=== PATIENT | female | born 1950 | race Caucasian/White ===

== ENCOUNTER 2016-10-27 16:24 | Emergency (ER) | payer MEDICARE, OTHER ==
[~2016-10-27] VITALS: Ht 162.6 cm; Wt 79.4 kg
[~2016-10-27 16:24] MED LIST: ACET-1742 PO; ACET-461 PO; ASP81TEC PO; DICL75TA2 PO; HYDR-2890 PO; HYDR-3720 PO; LORA1TAB PO; MAGN-47 PO; MIRT15TA6 PO; MTP25TSR PO; NCT14P TD; NCT14P TOP; NICO1PAT5 TD; OXYC-12 PO; QUET50TA PO; TRAM50TA2 PO
[2016-10-27] MEDS ORDERED: ATOR40TA70 (16:40)
[2016-10-27] MEDS ORDERED: TRAM50TA2 (16:40)
--- NOTE | 2016-10-27 16:51 | ED General ---
General Chief Complaint: General Problems/Pain Stated Complaint: DIZZINESS/NAUSEA Nursing Triage Note: States that she started taking tamadol yesterday for a fx foot. States today she has become dizzy and nauseated. her head "just doesn't feel right" Nursing Sepsis Screen: No Definite Risk Source of Information: Patient, EMS Exam Limitations: No Limitations History of Present Illness Time Seen by Provider: 16:50 Initial Comments To ER with reports of dizziness and nausea after taking an Ultram this morning for a foot fracture that she sustained on the of last month. This report is from EMS, I spent nearly 10 minutes with the patient and was still unable to determine from my conversation with her what her chief complaint is today. Timing/Duration: 1-2 Days Severity: Moderate Allergies and Home Medications Allergies Coded Allergies: Penicillins (Unverified Allergy, Unknown, PASSED OUT, 10/27/16) Home Medications Acetaminophen 500 Mg Tablet, 500 MG PO Q6H PRN, (Reported) Aspirin 81 Mg Tabec, 81 MG PO DAILY, (Reported) Atorvastatin Calcium 40 Mg Tablet, #30 (Reported) Lorazepam 1 Mg Tablet, 1 EACH PO HS PRN, (Reported) Metoprolol Succinate 25 Mg Tab.sr.24h, 1 EACH PO DAILY, (Reported) Mirtazapine 15 Mg Tablet, 30 MG PO HS, (Reported) Quetiapine Fumarate 50 Mg Tablet, 50 MG PO TID, (Reported) ONE IN AM, ONE IN AFTERNOON AND TWO AT HS Tramadol HCl 50 Mg Tablet, #30 (Reported) Constitutional: see HPI EENTM: see HPI Respiratory: no symptoms reported Cardiovascular: no symptoms reported Gastrointestinal: nausea Genitourinary: no symptoms reported Musculoskeletal: no symptoms reported Skin: no symptoms reported Psychiatric/Neurological: No Symptoms Reported Hematologic/Lymphatic: No Symptoms Reported Past Elkzikw-Xhwikb-Hpvibg Hx Patient Social History Alcohol Use: Occasionally Uses Recreational Drug Use: No Smoking Status: Current Everyday Smoker Type Used: Cigarettes 2nd Hand Smoke Exposure: No Recent Foreign Travel: No Contact w/Someone Who Travel: No Recent Infectious Disease Expo: No Recent Hopitalizations: No (RIGHT HIP) Immunizations Up To Date Tetanus Booster (TDap): Less than 5yrs PED Vaccines UTD: Yes Surgeries HX Surgeries: Yes Surgeries: Breast, Orthopedic Respiratory Hx Respiratory Disorders: No Cardiovascular Hx Cardiac Disorders: Yes Cardiac Disorders: High Cholesterol, Hypertension Neurological Hx Neurological Disorders: No Reproductive System Hx Reproductive Disorders: No Sexually Transmitted Disease: No HIV/AIDS: No Genitourinary Hx Genitourinary Disorders: No Gastrointestinal Hx Gastrointestinal Disorders: No Musculoskeletal Hx Musculoskeletal Disorders: Yes (OSTEOARTHRITIS) Endocrine Hx Endocrine Disorders: No HEENT HX ENT Disorders: No Cancer Hx Cancer: No Psychosocial Hx Psychiatric Problems: Yes Behavioral Health Disorders: Anxiety Integumentary HX Skin/Integumentary Disorder: No Blood Transfusions Hx Blood Disorders: No Physical Exam Vital Signs Vital Sign - Last 12Hours 10/27/16 16:32 Temp 97.3 Pulse 71 Resp 18 B/P (MAP) 137/94 Pulse Ox 99 Capillary Refill : Less Than 3 Seconds General Appearance: No Apparent Distress, WD/WN Eyes: Bilateral Eye EOMI, Bilateral Eye Normal Inspection, Bilateral Eye PERRL HEENT: PERRL/EOMI, TMs Normal Neck: Full Range of Motion, Normal Inspection Respiratory: No Accessory Muscle Use, No Respiratory Distress Cardiovascular: Regular Rate, Rhythm, Normal Peripheral Pulses Gastrointestinal: Normal Bowel Sounds, Non Tender, Soft Extremity: Normal Capillary Refill, Non Tender, No Calf Tenderness Neurologic/Psychiatric: Alert, Oriented x3, No Motor/Sensory Deficits Skin: Normal Color, Warm/Dry Progress/Results/Core Measures Results/Orders Lab Results Laboratory Tests Test 10/27/16 17:05 10/27/16 17:11 Range/Units White Blood Count 8.3 4.3-11.0 10^3/uL Red Blood Count 5.23 4.35-5.85 10^6/uL Hemoglobin 15.2 11.5-16.0 G/DL Hematocrit 45 35-52 % Mean Corpuscular Volume 86 80-99 FL Mean Corpuscular Hemoglobin 29 25-34 PG Mean Corpuscular Hemoglobin Concent 34 32-36 G/DL Red Cell Distribution Width 14.6 H 10.0-14.5 % Platelet Count 211 130-400 10^3/uL Mean Platelet Volume 9.8 7.4-10.4 FL Neutrophils (%) (Auto) 83 H 42-75 % Lymphocytes (%) (Auto) 13 12-44 % Monocytes (%) (Auto) 3 0-12 % Eosinophils (%) (Auto) 0 0-10 % Basophils (%) (Auto) 0 0-10 % Neutrophils # (Auto) 6.9 1.8-7.8 X 10^3 Lymphocytes # (Auto) 1.1 1.0-4.0 X 10^3 Monocytes # (Auto) 0.3 0.0-1.0 X 10^3 Eosinophils # (Auto) 0.0 0.0-0.3 10^3/uL Basophils # (Auto) 0.0 0.0-0.1 10^3/uL Urine Color YELLOW Urine Clarity SLIGHTLY CLOUDY Urine pH 6 5-9 Urine Specific [place] 1.020 1.016-1.022 Urine Protein NEGATIVE NEGATIVE Urine Glucose (UA) NEGATIVE NEGATIVE Urine Ketones NEGATIVE NEGATIVE Urine Nitrite NEGATIVE NEGATIVE Urine Bilirubin NEGATIVE NEGATIVE Urine Urobilinogen NORMAL NORMAL MG/DL Urine Leukocyte Esterase 1+ H NEGATIVE Urine RBC (Auto) NEGATIVE NEGATIVE Urine RBC NONE /HPF Urine WBC NONE /HPF Urine Squamous Epithelial Cells 2-5 /HPF Urine Crystals NONE /LPF Urine Bacteria TRACE /HPF Urine Casts NONE /LPF Urine Mucus NEGATIVE /LPF Urine Culture Indicated NO My Orders Orders - EDWIN VIDAL BIB[employer]APHIC SERVICES SPECIALIST Cbc With Automated Diff (10/27/16 16:47) Comprehensive Metabolic Panel (10/27/16 16:47) Ua Culture If Indicated (10/27/16 16:47) Ondansetron Oral Dissolve Tab (Zofran (10/27/16 17:00) Foot, Left, 3 Views (10/27/16 17:02) Medications Given in ED Current Medications Medications Dose Ordered Sig/Rebecca Route Start Time Stop Time Status Last Admin Dose Admin Ondansetron HCl 4 mg ONCE ONCE PO 10/27/16 17:00 10/27/16 17:01 DC 10/27/16 16:57 4 MG Vital Signs/I&O Vital Sign - Last 12Hours 10/27/16 16:32 Temp 97.3 Pulse 71 Resp 18 B/P (MAP) 137/94 Pulse Ox 99 Blood Pressure Mean: 108 Departure Impression Impression: Primary Impression: Medication adverse effect Disposition: HOME, SELF-CARE Condition: Stable Departure-Patient Inst. Decision time for Depature: 17:36 Referrals: MARK FRANKLIN (PCP) Primary Care Physician RIKY WELLER MD (Family) Primary Care Physician Patient Instructions: MEDICATION REACTION Add. Discharge Instructions: 1. Return to ER for any concerns 2. Do not take any more of the Ultram. All discharge instructions reviewed with patient and/or family. Voiced understanding. EDWIN VIDAL B[employer] SERVICES SPECIALIST October 27, 2016 16:51
[2016-10-27] MEDS ORDERED: ONDANSETRON 4 MG (ZOFRAN) ORAL DISSOLVE TAB PO ONE (17:00)
[2016-10-27 17:16] LABS: BASOPHILS % (AUTO) 0 % (0-10); EOSINOPHILS % (AUTO) 0 % (0-10); LYMPHOCYTES # (AUTO) 1.1 X 10^3 (1.0-4.0); LYMPHOCYTES % (AUTO) 13 % (12-44); MEAN CORPUSCULAR HEMOGLOBIN 29 PG (25-34); MEAN CORPUSCULAR HGB CONC 34 G/DL (32-36); MEAN CORPUSCULAR VOLUME 86 FL (80-99); MEAN PLATELET VOLUME 9.8 FL (7.4-10.4); MONOCYTES # (AUTO) 0.3 X 10^3 (0.0-1.0); MONOCYTES % (AUTO) 3 % (0-12); NEUTROPHILS # (AUTO) 6.9 X 10^3 (1.8-7.8); NEUTROPHILS % (AUTO) 83 % (42-75); PLATELET COUNT 211 10^3/uL (130-400); RED BLOOD COUNT 5.23 10^6/uL (4.35-5.85); RED CELL DISTRIBUTION WIDTH 14.6 % (10.0-14.5); WHITE BLOOD COUNT 8.3 10^3/uL (4.3-11.0)
[2016-10-27 17:22] LABS: BILIRUBIN,URINE NEGATIVE (NEGATIVE); KETONES,URINE NEGATIVE (NEGATIVE); LEUKOCYTE ESTERASE ,URINE 1+ (NEGATIVE); NITRITE,URINE NEGATIVE (NEGATIVE); PH,URINE 6 (5-9); PROTEIN,URINE NEGATIVE (NEGATIVE); UROBILINOGEN,URINE NORMAL (NORMAL)
[2016-10-27 17:33] LABS: ALANINE AMINOTRANSFERASE 21 U/L (0-55); ALBUMIN 4.3 G/DL (3.2-4.5); ANION GAP 9 MMOL/L (5-14); ASPARTATE AMINO TRANSFERASE 23 U/L (5-34); BILIRUBIN,TOTAL 0.4 MG/DL (0.1-1.0); BLOOD UREA NITROGEN 19 MG/DL (7-18); BUN/CREATININE RATIO 26; CARBON DIOXIDE 27 MMOL/L (21-32); CHLORIDE 102 MMOL/L (98-107); CREATININE SERUM 0.73 MG/DL (0.60-1.30); GFR ESTIMATED > 60; GLUCOSE 118 MG/DL (70-105); POTASSIUM 4.2 MMOL/L (3.6-5.0); SODIUM 138 MMOL/L (135-145); TOTAL PROTEIN 7.3 G/DL (6.4-8.2)
--- NOTE | 2016-10-27 17:46 | Diagnostic Imaging Report ---
INDICATION: Pain. 3 views were obtained. FINDINGS: The bones are osteopenic. There is a questionable faint lucency in the proximal fifth metatarsal. Nondisplaced occult fracture cannot be excluded. There is also slight cortical irregularity involving the distal aspect of the proximal phalanx of the second toe. A nondisplaced fracture in this region cannot be excluded. There is moderate osteoarthritic change in the first metatarsophalangeal joint. Soft tissues are unremarkable. IMPRESSION: Faint lucency to the proximal fifth metatarsal. While this may be secondary to osteopenia, possibility of an occult fracture cannot be excluded. Additionally, there is slight cortical irregularity in the distal aspect of the proximal phalanx of the left second toe. Nondisplaced fracture in this region cannot be excluded. Recommend clinical correlation. Dictated by: Dictated on workstation # [id number]
[2016-10-27 18:00] VITALS: BP 139/71
== END 2016-10-27 18:00 | disposition home or self-care (01) ==
LOC: EDUNIT# 16:24 → ER 16:25
DX: R42 Dizziness and giddiness (principal); R11.0 Nausea; T40.0X5A Adverse effect of opium, initial encounter; I10 Essential (primary) hypertension; F17.210 Nicotine dependence, cigarettes, uncomplicated; Z79.82 Long term (current) use of aspirin; Z79.899 Other long term (current) drug therapy
CPT/HCPCS: 36415; 73630; 80053; 81000; 85025; 99283

== ENCOUNTER 2016-11-09 22:00 | Emergency (ER) | payer MEDICARE ==
[~2016-11-09] VITALS: Ht 160 cm; Wt 81.6 kg
[~2016-11-09 22:00] MED LIST changes: +ATOR40TA70; +TRAM50TA2
--- NOTE | 2016-11-09 22:22 | ED Lower Extremity ---
General Chief Complaint: Substance Abuse Stated Complaint: L FOOT PAIN Source: patient Exam Limitations: no limitations History of Present Illness Time seen by provider: 22:00 Initial Comments Here with report of left foot pain. States that the medicine that she was given for her fracture is not working. She admits to drinking 3 drinks tonight but told EMS that she had 6. She does admit to being drunk. She states that the tramadol makes her sick and she cannot take it and has not for 2 weeks. She apparently broke her foot last month. She is under the care of Dr. Jensen. She is supposed to wear a boot but does not have that with her currently. She appears to have been walking on her foot. Denies other injury or concerns. Onset: other (3-4 weeks) Severity: moderate Pain/Injury Location: left foot Method of Injury: unknown Modifying Factors: Improves With Immobilization, Worse With Movement Allergies and Home Medications Allergies Coded Allergies: Penicillins (Unverified Allergy, Unknown, PASSED OUT, 10/27/16) Home Medications Acetaminophen 500 Mg Tablet, 500 MG PO Q6H PRN, (Reported) Aspirin 81 Mg Tabec, 81 MG PO DAILY, (Reported) Atorvastatin Calcium 40 Mg Tablet, #30 (Reported) Lorazepam 1 Mg Tablet, 1 EACH PO HS PRN, (Reported) Metoprolol Succinate 25 Mg Tab.sr.24h, 1 EACH PO DAILY, (Reported) Mirtazapine 15 Mg Tablet, 30 MG PO HS, (Reported) Quetiapine Fumarate 50 Mg Tablet, 50 MG PO TID, (Reported) ONE IN AM, ONE IN AFTERNOON AND TWO AT HS Tramadol HCl 50 Mg Tablet, #30 (Reported) Constitutional: see HPI, No chills, No fever Respiratory: cough, No short of breath Cardiovascular: no symptoms reported Musculoskeletal: see HPI, No joint swelling, other (left foot pain) Skin: no symptoms reported Psychiatric/Neurological: Anxiety Past Ulpdlgs-Juwvip-Rlqthl Hx Patient Social History Alcohol Use: Occasionally Uses Recreational Drug Use: No Smoking Status: Current Everyday Smoker Type Used: Cigarettes 2nd Hand Smoke Exposure: No Recent Hopitalizations: No Immunizations Up To Date Tetanus Booster (TDap): Less than 5yrs PED Vaccines UTD: Yes Surgeries HX Surgeries: Yes Surgeries: Breast, Orthopedic Respiratory Hx Respiratory Disorders: No Cardiovascular Hx Cardiac Disorders: Yes Cardiac Disorders: High Cholesterol, Hypertension Neurological Hx Neurological Disorders: No Reproductive System Hx Reproductive Disorders: No Sexually Transmitted Disease: No HIV/AIDS: No Genitourinary Hx Genitourinary Disorders: No Gastrointestinal Hx Gastrointestinal Disorders: No Musculoskeletal Hx Musculoskeletal Disorders: Yes (OSTEOARTHRITIS) Endocrine Hx Endocrine Disorders: No HEENT HX ENT Disorders: No Cancer Hx Cancer: No Psychosocial Hx Psychiatric Problems: Yes Behavioral Health Disorders: Anxiety Integumentary HX Skin/Integumentary Disorder: No Blood Transfusions Hx Blood Disorders: No Reviewed Nursing Assessment Reviewed/Agree w Nursing PMH: Yes Physical Exam Vital Signs Vital Sign - Last 12Hours 11/09/16 22:01 Temp 97.1 Pulse 73 Resp 28 B/P (MAP) 124/74 Pulse Ox 100 O2 Delivery Room Air Capillary Refill : General Appearance: WD/WN, other (animated and somewhat anxious. Slurred speech.) Neck: full range of motion, supple Cardiovascular: regular rate, rhythm, no murmur Respiratory: lungs clear, normal breath sounds Gastrointestinal: non tender, soft Back: normal inspection, no CVA tenderness, no vertebral tenderness Feet: right foot non-tender, right foot normal inspection, right foot normal range of motion, left foot pain (lateral aspect), left foot other (no swelling or wounds noted.) Neurologic/Psychiatric: alert, other (slurred speech but follows commands. Smells of alcohol.) Skin: normal color, warm/dry Progress/Results/Core Measures Results/Orders Lab Results Laboratory Tests Test 11/09/16 22:20 Range/Units White Blood Count 6.8 4.3-11.0 10^3/uL Red Blood Count 5.17 4.35-5.85 10^6/uL Hemoglobin 14.8 11.5-16.0 G/DL Hematocrit 44 35-52 % Mean Corpuscular Volume 86 80-99 FL Mean Corpuscular Hemoglobin 29 25-34 PG Mean Corpuscular Hemoglobin Concent 33 32-36 G/DL Red Cell Distribution Width 14.8 H 10.0-14.5 % Platelet Count 233 130-400 10^3/uL Mean Platelet Volume 9.7 7.4-10.4 FL Neutrophils (%) (Auto) 50 42-75 % Lymphocytes (%) (Auto) 40 12-44 % Monocytes (%) (Auto) 6 0-12 % Eosinophils (%) (Auto) 3 0-10 % Basophils (%) (Auto) 0 0-10 % Neutrophils # (Auto) 3.4 1.8-7.8 X 10^3 Lymphocytes # (Auto) 2.7 1.0-4.0 X 10^3 Monocytes # (Auto) 0.4 0.0-1.0 X 10^3 Eosinophils # (Auto) 0.2 0.0-0.3 10^3/uL Basophils # (Auto) 0.0 0.0-0.1 10^3/uL Sodium Level 143 135-145 MMOL/L Potassium Level 3.4 L 3.6-5.0 MMOL/L Chloride Level 108 H 98-107 MMOL/L Carbon Dioxide Level 18 L 21-32 MMOL/L Anion Gap 17 H 5-14 MMOL/L Blood Urea Nitrogen 15 7-18 MG/DL Creatinine 0.67 0.60-1.30 MG/DL Estimat Glomerular Filtration Rate > 60 BUN/Creatinine Ratio 22 Glucose Level 114 H 70-105 MG/DL Calcium Level 9.3 8.5-10.1 MG/DL Total Bilirubin 0.2 0.1-1.0 MG/DL Aspartate Amino Transf (AST/SGOT) 21 5-34 U/L Alanine Aminotransferase (ALT/SGPT) 16 0-55 U/L Alkaline Phosphatase 88 40-136 U/L Total Protein 6.7 6.4-8.2 G/DL Albumin 4.1 3.2-4.5 G/DL Serum Alcohol 246 H <10 MG/DL My Orders Orders - CONRAD MEADE MD Alcohol (11/09/16 22:08) Cbc With Automated Diff (11/09/16 22:08) Comprehensive Metabolic Panel (11/09/16 22:08) Foot, Left, 3 Views (11/09/16 22:08) Vital Signs/I&O Vital Sign - Last 12Hours 11/09/16 22:01 Temp 97.1 Pulse 73 Resp 28 B/P (MAP) 124/74 Pulse Ox 100 O2 Delivery Room Air Progress Note : Progress Note Seen and evaluated. X-ray left foot. We will check alcohol level and basic labs. Monitor patient. 2139: Patient does not want to stay and is leaving AGAINST MEDICAL ADVICE. Discharge instructions given. She was informed to follow-up with Dr. Jensen. It does appear that she still has a fracture to the base of the left fifth metatarsal. Patient informed. She has boot at home and she was informed to wear this at all times while walking. Departure Impression Impression: Primary Impression: Foot fracture, left Qualified Codes: S92.902G - Unspecified fracture of left foot, subsequent encounter for fracture with delayed healing Disposition: Condition: Stable Departure-Patient Inst. Decision time for Depature: 22:44 Referrals: [facility] (PCP/Family) Primary Care Physician ROSE MARIE JENSEN DPM Patient Instructions: ALCOHOL AND SUBSTANCE ABUSE Add. Discharge Instructions: All discharge instructions reviewed with patient and/or family. Voiced understanding. You may take Tylenol or ibuprofen per package directions as needed for pain. Use walking boot at all times while walking. Follow-up with Dr. Jensen on Saturday morning. Call his office for appointment. Return for worse pain or other concerns as needed. CONRAD MEADE MD November 09, 2016 22:22
[2016-11-09 22:28] LABS: BASOPHILS % (AUTO) 0 % (0-10); EOSINOPHILS # (AUTO) 0.2 10^3/uL (0.0-0.3); EOSINOPHILS % (AUTO) 3 % (0-10); LYMPHOCYTES # (AUTO) 2.7 X 10^3 (1.0-4.0); LYMPHOCYTES % (AUTO) 40 % (12-44); MEAN CORPUSCULAR HEMOGLOBIN 29 PG (25-34); MEAN CORPUSCULAR HGB CONC 33 G/DL (32-36); MEAN CORPUSCULAR VOLUME 86 FL (80-99); MEAN PLATELET VOLUME 9.7 FL (7.4-10.4); MONOCYTES # (AUTO) 0.4 X 10^3 (0.0-1.0); MONOCYTES % (AUTO) 6 % (0-12); NEUTROPHILS # (AUTO) 3.4 X 10^3 (1.8-7.8); NEUTROPHILS % (AUTO) 50 % (42-75); PLATELET COUNT 233 10^3/uL (130-400); RED BLOOD COUNT 5.17 10^6/uL (4.35-5.85); RED CELL DISTRIBUTION WIDTH 14.8 % (10.0-14.5); WHITE BLOOD COUNT 6.8 10^3/uL (4.3-11.0)
[2016-11-09 22:44] LABS: ALANINE AMINOTRANSFERASE 16 U/L (0-55); ALBUMIN 4.1 G/DL (3.2-4.5); ALCOHOL 246 MG/DL (<10); ANION GAP 17 MMOL/L (5-14); ASPARTATE AMINO TRANSFERASE 21 U/L (5-34); BILIRUBIN,TOTAL 0.2 MG/DL (0.1-1.0); BLOOD UREA NITROGEN 15 MG/DL (7-18); BUN/CREATININE RATIO 22; CALCIUM 9.3 MG/DL (8.5-10.1); CARBON DIOXIDE 18 MMOL/L (21-32); CHLORIDE 108 MMOL/L (98-107); CREATININE SERUM 0.67 MG/DL (0.60-1.30); GFR ESTIMATED > 60; GLUCOSE 114 MG/DL (70-105); POTASSIUM 3.4 MMOL/L (3.6-5.0); SODIUM 143 MMOL/L (135-145); TOTAL PROTEIN 6.7 G/DL (6.4-8.2)
[2016-11-09 22:48] VITALS: BP 0/0
--- NOTE | 2016-11-10 07:56 | Diagnostic Imaging Report ---
INDICATION: Pain COMPARISON: 10/27/2016 FINDINGS: Three views of the left foot are obtained. There has been no significant interval change in alignment or position of the fracture through the proximal fifth metatarsal. Fracture line is slightly more distinct today, likely due to bony resorption at the fracture site. No significant callus is demonstrated. No new fracture is seen. Advanced degenerative change at the first MTP joint with significant joint space narrowing, subchondral irregularity and spurring appear similar to the recent prior study. No significant abnormalities demonstrated. IMPRESSION: There is bony resorption about the fracture site through the proximal fifth metatarsal. This metatarsal fractures otherwise unchanged in appearance. Severe degenerative changes at the first MTP joint are stable. No new abnormality is seen when compared to the recent prior study. Dictated by: Dictated on workstation # [id number]
== END 2016-11-09 22:48 | disposition left against medical advice (07) ==
LOC: EDUNIT# 22:00 → ER 22:02
DX: S92.352D Displaced fracture of fifth metatarsal bone, left foot, subsequent encounter for fracture with routine healing (principal); F10.129 Alcohol abuse with intoxication, unspecified; Y90.8 Blood alcohol level of 240 mg/100 ml or more; M19.072 Primary osteoarthritis, left ankle and foot; I10 Essential (primary) hypertension; F17.210 Nicotine dependence, cigarettes, uncomplicated; Z79.82 Long term (current) use of aspirin; Z79.899 Other long term (current) drug therapy; X58.XXXD Exposure to other specified factors, subsequent encounter; Y99.8 Other external cause status
CPT/HCPCS: 36415; 73630; 80053; 80320; 85025; 99283

== ENCOUNTER 2016-12-30 13:23 | Emergency (ER) | payer MEDICARE ==
[~2016-12-30] VITALS: Ht 160 cm; Wt 77.1 kg
[2016-12-30] MEDS ORDERED: NS IV 1000 ML 1,000 ML IV STA (14:07)
[2016-12-30] MEDS ORDERED: HYOSCYAMINE 0.125 MG (LEVSIN) TAB SL ONE (14:15)
--- NOTE | 2016-12-30 14:32 | ED Abdominal Pain ---
General Chief Complaint: Abdominal/GI Problems Stated Complaint: DIARRHEA/DIZZINESS/NAUSEA/BLOATING Nursing Triage Note: ARRIVED VIA AMB TO ROOM 09 WITHOUT DIFFICULTY. COMPLAINS OF DIARRHEA X2 DAYS. STATES SHE HAS BEEN SPRAYING ORTHO HOME DEFENSE FOR COCKROACHES AND WONDERS IF IT IS FROM THAT. PT STATES SHE IS ALSO BLOATED. Sepsis Screen: No Definite Risk Source of Information: Patient Exam Limitations: No Limitations History of Present Illness Time Seen By Provider: 14:00 Initial Comments Here with report of diarrhea multiple times daily for the last 3 days. She was a little concerned because she has been spreading for cockroaches at her house and she was worried that she may have had some reaction to the bug spray. She said Imodium has not helped. She is very active and animated and in no other distress otherwise. Denies blood in her urine or stool. States that water is going right through her. Timing/Duration: 2-3 Days Severity/Quality: Moderate, Cramping Location: Generalized Abdomen Modifying Factors: Worsens With Eating Associated Symptoms: No Back Pain, No Chest Pain, No Fever/Chills, No Fatigue, No Nausea/Vomiting, No Weakness Allergies and Home Medications Allergies Coded Allergies: Penicillins (Unverified Allergy, Unknown, PASSED OUT, 10/27/16) Home Medications Acetaminophen 500 Mg Tablet, 500 MG PO Q6H PRN, (Reported) Aspirin 81 Mg Tabec, 81 MG PO DAILY, (Reported) Atorvastatin Calcium 40 Mg Tablet, #30 (Reported) Lorazepam 1 Mg Tablet, 1 EACH PO HS PRN, (Reported) Metoprolol Succinate 25 Mg Tab.sr.24h, 1 EACH PO DAILY, (Reported) Mirtazapine 15 Mg Tablet, 30 MG PO HS, (Reported) Quetiapine Fumarate 50 Mg Tablet, 50 MG PO TID, (Reported) ONE IN AM, ONE IN AFTERNOON AND TWO AT HS Tramadol HCl 50 Mg Tablet, #30 (Reported) Review of Systems Constitutional: see HPI, No chills, No fever EENTM: No Symptoms Reported Respiratory: No Symptoms Reported Cardiovascular: No Symptoms Reported Gastrointestinal: See HPI, Abdominal Pain, Diarrhea, Denies Rectal Bleeding, Denies Vomiting Genitourinary: No Symptoms Reported Musculoskeletal: no symptoms reported All Other Systems Reviewed Negative Unless Noted: Yes Past Hefkwhr-Qacqcg-Arillb Hx Patient Social History Alcohol Use: Rarely Uses Recreational Drug Use: No Smoking Status: Current Everyday Smoker Type Used: Cigarettes 2nd Hand Smoke Exposure: No Recent Foreign Travel: No Contact w/Someone Who Travel: No Recent Infectious Disease Expo: No Recent Hopitalizations: No Immunizations Up To Date Tetanus Booster (TDap): Less than 5yrs PED Vaccines UTD: Yes Surgeries HX Surgeries: Yes Surgeries: Breast, Orthopedic Respiratory Hx Respiratory Disorders: No Cardiovascular Hx Cardiac Disorders: Yes Cardiac Disorders: High Cholesterol, Hypertension Neurological Hx Neurological Disorders: No Reproductive System Hx Reproductive Disorders: No Sexually Transmitted Disease: No HIV/AIDS: No Genitourinary Hx Genitourinary Disorders: No Gastrointestinal Hx Gastrointestinal Disorders: No Musculoskeletal Hx Musculoskeletal Disorders: Yes (OSTEOARTHRITIS) Endocrine Hx Endocrine Disorders: No HEENT HX ENT Disorders: No Cancer Hx Cancer: No Psychosocial Hx Psychiatric Problems: Yes Behavioral Health Disorders: Anxiety Integumentary HX Skin/Integumentary Disorder: No Blood Transfusions Hx Blood Disorders: No Reviewed Nursing Assessment Reviewed/Agree w Nursing PMH: Yes Family Medical History Significant Family History: No Pertinent Family Hx Physical Exam Vital Signs VS - Last 72 Hours, by Label 12/30/16 13:40 Temp 98.0 Pulse 74 Resp 16 B/P (MAP) 132/79 Pulse Ox 96 O2 Delivery Room Air Capillary Refill : Less Than 3 Seconds General Appearance: WD/WN, no apparent distress HEENT: PERRL/EOMI, pharynx normal Neck: full range of motion, supple Respiratory: lungs clear, normal breath sounds Cardiovascular: regular rate, rhythm, no murmur Peripheral Pulses: 2+ Dorsalis Pedis (R), 2+ Left Dors-Pedis (L), 2+ Radial Pulses (R), 2+ Radial Pulses (L) Gastrointestinal: non tender, soft Extremities: non-tender, normal inspection Back: normal inspection, no CVA tenderness, no vertebral tenderness Neurologic/Psychiatric: alert, oriented x 3 Skin: normal color, warm/dry Progress/Results/Core Measures Results/Orders Lab Results Laboratory Tests Test 12/30/16 14:20 12/30/16 15:16 Range/Units White Blood Count 11.1 H 4.3-11.0 10^3/uL Red Blood Count 5.52 4.35-5.85 10^6/uL Hemoglobin 15.6 11.5-16.0 G/DL Hematocrit 47 35-52 % Mean Corpuscular Volume 85 80-99 FL Mean Corpuscular Hemoglobin 28 25-34 PG Mean Corpuscular Hemoglobin Concent 33 32-36 G/DL Red Cell Distribution Width 15.6 H 10.0-14.5 % Platelet Count 234 130-400 10^3/uL Mean Platelet Volume 9.7 7.4-10.4 FL Neutrophils (%) (Auto) 89 H 42-75 % Lymphocytes (%) (Auto) 8 L 12-44 % Monocytes (%) (Auto) 2 0-12 % Eosinophils (%) (Auto) 0 0-10 % Basophils (%) (Auto) 0 0-10 % Neutrophils # (Auto) 9.9 H 1.8-7.8 X 10^3 Lymphocytes # (Auto) 0.9 L 1.0-4.0 X 10^3 Monocytes # (Auto) 0.2 0.0-1.0 X 10^3 Eosinophils # (Auto) 0.0 0.0-0.3 10^3/uL Basophils # (Auto) 0.0 0.0-0.1 10^3/uL Sodium Level 138 135-145 MMOL/L Potassium Level 4.1 3.6-5.0 MMOL/L Chloride Level 107 98-107 MMOL/L Carbon Dioxide Level 19 L 21-32 MMOL/L Anion Gap 12 5-14 MMOL/L Blood Urea Nitrogen 21 H 7-18 MG/DL Creatinine 0.76 0.60-1.30 MG/DL Estimat Glomerular Filtration Rate > 60 BUN/Creatinine Ratio 28 Glucose Level 108 H 70-105 MG/DL Calcium Level 9.3 8.5-10.1 MG/DL Total Bilirubin 0.4 0.1-1.0 MG/DL Aspartate Amino Transf (AST/SGOT) 27 5-34 U/L Alanine Aminotransferase (ALT/SGPT) 25 0-55 U/L Alkaline Phosphatase 79 40-136 U/L Total Protein 7.0 6.4-8.2 GM/DL Albumin 4.0 3.2-4.5 GM/DL Urine Color YELLOW Urine Clarity SLIGHTLY CLOUDY Urine pH 5 5-9 Urine Specific [place] 1.020 1.016-1.022 Urine Protein NEGATIVE NEGATIVE Urine Glucose (UA) NEGATIVE NEGATIVE Urine Ketones NEGATIVE NEGATIVE Urine Nitrite NEGATIVE NEGATIVE Urine Bilirubin NEGATIVE NEGATIVE Urine Urobilinogen NORMAL NORMAL MG/DL Urine Leukocyte Esterase 1+ H NEGATIVE Urine RBC (Auto) NEGATIVE NEGATIVE Urine RBC NONE /HPF Urine WBC 0-2 /HPF Urine Squamous Epithelial Cells 5-10 /HPF Urine Crystals NONE /LPF Urine Bacteria RARE /HPF Urine Casts NONE /LPF Urine Mucus NEGATIVE /LPF Urine Culture Indicated NO My Orders Orders - CONRAD MEADE MD Cbc With Automated Diff (12/30/16 14:07) Comprehensive Metabolic Panel (12/30/16 14:07) Ua Culture If Indicated (12/30/16 14:07) Ns Iv 1000 Ml (Sodium Chloride 0.9%) (12/30/16 14:07) Hyoscyamine Sl Tablet (Levsin Sl Tablet) (12/30/16 14:15) Saline Lock/Iv-Start (12/30/16 14:07) Manual Differential (12/30/16 14:20) Medications Given in ED Current Medications Medications Dose Ordered Sig/Rebecca Route Start Time Stop Time Status Last Admin Dose Admin Hyoscyamine Sulfate 0.125 mg ONCE ONCE SL 12/30/16 14:15 12/30/16 14:16 DC 12/30/16 14:18 0.125 MG Vital Signs/I&O Vital Sign - Last 12Hours 12/30/16 13:40 Temp 98.0 Pulse 74 Resp 16 B/P (MAP) 132/79 Pulse Ox 96 O2 Delivery Room Air Blood Pressure Mean: 96 Progress Note : Progress Note Seen and evaluated. IV, labs and UA. Normal saline 1 L bolus. Less than 0.125 mg by mouth. Monitor patient. 1550: Patient walking around the ER without difficulty. No report of diarrhea. Overall feeling much better. No acute findings on laboratory data. Discharged home with return precautions. Patient verbalize understanding instructions and agreement with plan. Departure Impression Impression: Primary Impression: Diarrhea Qualified Codes: R19.7 - Diarrhea, unspecified Additional Impression: Diffuse abdominal pain Disposition: 01 HOME, SELF-CARE Condition: Improved Departure-Patient Inst. Referrals: [facility] (PCP/Family) Primary Care Physician Patient Instructions: Acute Abdomen (Belly Pain), Adult (DC), Diarrhea in Adolescents and Adults Add. Discharge Instructions: All discharge instructions reviewed with patient and/or family. Voiced understanding. Drink plenty of fluids. Eat a light diet that is bland for a few days and then advance as tolerated. Follow-up with your Dr. in one to 2 days for recheck. Return for worse pain, fever, vomiting, weakness, breathing problems or other concerns as needed. Scripts Hyoscyamine Sulfate (Levsin-Sl) 0.125 Mg Tab.subl 0.125 MG SL Q4H, #10 TAB 0 Refills Prov: CONRAD MEADE MD 12/30/16 CONRAD MEADE MD Dec 30, 2016 14:32
[2016-12-30 15:12] LABS: BASOPHILS % (AUTO) 0 % (0-10); EOSINOPHILS % (AUTO) 0 % (0-10); LYMPHOCYTES # (AUTO) 0.9 X 10^3 (1.0-4.0); LYMPHOCYTES % (AUTO) 8 % (12-44); MEAN CORPUSCULAR HEMOGLOBIN 28 PG (25-34); MEAN CORPUSCULAR HGB CONC 33 G/DL (32-36); MEAN CORPUSCULAR VOLUME 85 FL (80-99); MEAN PLATELET VOLUME 9.7 FL (7.4-10.4); MONOCYTES # (AUTO) 0.2 X 10^3 (0.0-1.0); MONOCYTES % (AUTO) 2 % (0-12); NEUTROPHILS # (AUTO) 9.9 X 10^3 (1.8-7.8); NEUTROPHILS % (AUTO) 89 % (42-75); PLATELET COUNT 234 10^3/uL (130-400); RED BLOOD COUNT 5.52 10^6/uL (4.35-5.85); RED CELL DISTRIBUTION WIDTH 15.6 % (10.0-14.5); WHITE BLOOD COUNT 11.1 10^3/uL (4.3-11.0)
[2016-12-30 15:45] LABS: ALANINE AMINOTRANSFERASE 25 U/L (0-55); ANION GAP 12 MMOL/L (5-14); ASPARTATE AMINO TRANSFERASE 27 U/L (5-34); BILIRUBIN,TOTAL 0.4 MG/DL (0.1-1.0); BLOOD UREA NITROGEN 21 MG/DL (7-18); BUN/CREATININE RATIO 28; CALCIUM 9.3 MG/DL (8.5-10.1); CARBON DIOXIDE 19 MMOL/L (21-32); CHLORIDE 107 MMOL/L (98-107); CREATININE SERUM 0.76 MG/DL (0.60-1.30); GFR ESTIMATED > 60; GLUCOSE 108 MG/DL (70-105); POTASSIUM 4.1 MMOL/L (3.6-5.0); SODIUM 138 MMOL/L (135-145)
[2016-12-30 15:51] LABS: BILIRUBIN,URINE NEGATIVE (NEGATIVE); KETONES,URINE NEGATIVE (NEGATIVE); LEUKOCYTE ESTERASE ,URINE 1+ (NEGATIVE); NITRITE,URINE NEGATIVE (NEGATIVE); PH,URINE 5 (5-9); PROTEIN,URINE NEGATIVE (NEGATIVE); UROBILINOGEN,URINE NORMAL (NORMAL)
[2016-12-30 15:52] LABS: WBC,URINE 0-2 /HPF
[2016-12-30] MEDS ORDERED: HYOS0.1283 SL (16:04)
[2016-12-30 16:05] VITALS: BP 137/73
[2016-12-30 16:38] LABS: LYMPHOCYTES % (MANUAL) 6 %; NEUTROPHILS % (MANUAL) 91 %
--- OUTSIDE RECORDS SUMMARY | 2017-01-01 11:32 | XMS REPORT | Continuity of Care Document ---
Author Author [facility] Organization [facility] Address Unknown Phone Unavailable Allergies Active Description Code Type Severity Reaction Onset Reported/Identified Relationship to Patient Clinical Status Yes penicillamine Drug Allergy 11/27/2010 Yes penicillamine Drug Allergy N/A N/A 11/27/2010 Yes amlodipine 5 mg tablet Drug Allergy N/A N/A 07/01/2014 Yes Penicillins [id number] Drug Allergy Unknown PASSED OUT 10/27/2016 Medications Problems Date Dx Coded Attending Type Code Diagnosis Diagnosed By 11/27/2010 719.45 PAIN IN JOINT INVOLVING [place] AND THIGH 11/27/2010 MARK FRANKLIN APRN 719.45 PAIN IN JOINT INVOLVING [employer]IGH 11/27/2010 719.45 PAIN IN JOINT INVOLVING PELV[employer] AND THIGH 11/27/2010 MARK FRANKLIN APRN 719.45 PAIN IN JOINT INVOLVING PEL[employer]IC [employer] AND THIGH 11/27/2010 JES MODI DO 719.45 PAIN IN JOINT INVOLVING PELVIC [employer] AND THIGH 11/27/2010 MARK FRANKLIN APRN S 719.45 PAIN IN JOINT INVOLVING PELVIC [employer] AND THIGH 11/27/2010 MARK FRANKLIN APRN S 719.45 PAIN IN JOINT INVOLVING P[employer] AND THIGH 11/27/2010 MARK FRANKLIN APRN 719.45 PAIN IN JOINT INVOLVING P[employer] AND THIGH 11/27/2010 MARK FRANKLIN APRN S 719.45 PAIN IN JOINT INVOLVING PELVIC [employer] AND THIGH 02/01/2011 Ot 285.1 AC POSTHEMORRHAG ANEMIA 02/01/2011 Ot 305.1 TOBACCO USE DISORDER 02/01/2011 Ot 715.35 LOC OSTEOARTH NOS-PELVIS 04/05/2011 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 04/05/2011 MARK FRANKLIN APRN 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 04/05/2011 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 04/05/2011 RIGOBERTO BOAT FINISHER, MARK S 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 04/05/2011 JES OMDI DO K 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 04/05/2011 RIGOBERTO BO[employer] FINISHER, MARK S 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 04/05/2011 RIGOBERTO BOAT FINISHER, MARK S 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 04/05/2011 RIGOBERTO BOAT FINISHER, MARK S 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 04/05/2011 RIGOBERTO BOAT FINISHER, MARK S 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 05/03/2011 706.1 OTHER ACNE 05/03/2011 RIGOBERTO BO[employer] FINISHER, MARK S 706.1 OTHER ACNE 05/03/2011 706.1 OTHER ACNE 05/03/2011 RIOGBERTO BOAT FINISHER, MARK S 706.1 OTHER ACNE 05/03/2011 JES MODI DO K 706.1 OTHER ACNE 05/03/2011 RIGOBERTO BOAT FINISHER, MARK S 706.1 OTHER ACNE 05/03/2011 RIGOBERTO BOAT FINISHER, MARK S 706.1 OTHER ACNE 05/03/2011 RIGOBERTO BOAT FINISHER, MARK S 706.1 OTHER ACNE 05/03/2011 RIGOBERTO BOAT FINISHER, MARK S 706.1 OTHER ACNE 07/31/2011 300.00 anxiety 07/31/2011 RIGOBERTO [employer] FINISHER, MARK S 300.00 anxiety 07/31/2011 300.00 anxiety 07/31/2011 RIGOBERTO BO[employer] FINISHER, MARK S 300.00 anxiety 07/31/2011 JES MODI DO K 300.00 anxiety 07/31/2011 RIGOBERTO BOAT FINISHER, MARK S 300.00 anxiety 07/31/2011 RIGOBERTO BOAT FINISHER, MARK S 300.00 anxiety 07/31/2011 RIGOBERTO BOAT FINISHER, MARK S 300.00 anxiety 07/31/2011 RIGOBERTO BOAT FINISHER, MARK S 300.00 anxiety 11/16/2011 Ot 300.00 ANXIETY STATE NOS 11/16/2011 Ot 305.1 TOBACCO USE DISORDER 11/16/2011 Ot 427.69 PREMATURE BEATS NEC 11/16/2011 Ot 427.89 CARDIAC DYSRHYTHMIAS NEC 11/16/2011 Ot 715.35 LOC OSTEOARTH NOS-PELVIS 11/16/2011 Ot 790.29 OTHER ABNORMAL GLUCOSE 11/16/2011 Ot V17.49 FAMILY HISTORY OF OTHER CARDIOVASCULAR D 11/16/2011 Ot V43.64 HIP JOINT REPLACEMENT STATUS 11/28/2011 Ot 275.41 HYPOCALCEMIA 11/28/2011 Ot 285.9 ANEMIA NOS 11/28/2011 Ot 296.90 UNSPECIFIED EPISODIC MOOD DISORDER 11/28/2011 Ot 300.00 ANXIETY STATE NOS 11/28/2011 Ot 305.1 TOBACCO USE DISORDER 11/28/2011 Ot 715.36 LOC OSTEOARTH NOS-L/LEG 11/28/2011 Ot V43.64 HIP JOINT REPLACEMENT STATUS 11/28/2011 Ot V54.81 AFTERCARE FOLLOWING JOINT REPLACEMENT 11/28/2011 Ot V57.1 PHYSICAL THERAPY NEC 11/28/2011 Ot V57.21 ENCOUNTER FOR OCCUPATIONAL THERAPY 04/09/2012 796.2 ELEVATED BLOOD PRESSURE READING WITHOUT DIAGNOSIS OF HYPERTENSION 04/09/2012 JAMES FRANKLIN APRNA S 796.2 ELEVATED BLOOD PRESSURE READING WITHOUT DIAGNOSIS OF HYPERTENSION 04/09/2012 796.2 ELEVATED BLOOD PRESSURE READING WITHOUT DIAGNOSIS OF HYPERTENSION 04/09/2012 PARRISH FRANKLIN APRNNDA S 796.2 ELEVATED BLOOD PRESSURE READING WITHOUT DIAGNOSIS OF HYPERTENSION 04/09/2012 JES MODI DO K 796.2 ELEVATED BLOOD PRESSURE READING WITHOUT DIAGNOSIS OF HYPERTENSION 04/09/2012 PARRISH FRANKLIN APRNNDA S 796.2 ELEVATED BLOOD PRESSURE READING WITHOUT DIAGNOSIS OF HYPERTENSION 04/09/2012 PARRISH FRANKLIN APRNNDA S 796.2 ELEVATED BLOOD PRESSURE READING WITHOUT DIAGNOSIS OF HYPERTENSION 04/09/2012 PARRISH FRANKLIN APRNNDA S 796.2 ELEVATED BLOOD PRESSURE READING WITHOUT DIAGNOSIS OF HYPERTENSION 04/09/2012 PARRISH FRANKLIN APRNNDA S 796.2 ELEVATED BLOOD PRESSURE READING WITHOUT DIAGNOSIS OF HYPERTENSION 06/03/2012 PARRISH FRANKLIN APRNNDA S 272.4 HYPERLIPIDEMIA 06/03/2012 272.4 HYPERLIPIDEMIA 06/03/2012 PARRISH FRANKLIN APRNNDA S 272.4 HYPERLIPIDEMIA 06/03/2012 MODI LEEANNA HIGGINBOTHAMA K 272.4 HYPERLIPIDEMIA 06/03/2012 PARRISH FRANKLIN APRNNDA S 272.4 HYPERLIPIDEMIA 06/03/2012 MARK FRANKLIN APRN S 272.4 HYPERLIPIDEMIA 06/03/2012 JAMES FRANKLIN APRNA S 272.4 HYPERLIPIDEMIA 07/14/2012 Ot 785.1 PALPITATIONS 07/14/2012 Ot 786.09 RESPIRATORY ABNORM NEC 07/14/2012 Ot 786.50 CHEST PAIN NOS 03/04/2013 JAMES FRANKLIN APRNA S 719.47 PAIN- FOOT 03/04/2013 MODI JES HIGGINBOTHAM Derik 719.47 PAIN- FOOT 03/04/2013 JAMES FRANKLIN APRNA S 719.47 PAIN- FOOT 03/04/2013 JAMES FRANKLIN APRNA S 719.47 PAIN- FOOT 03/04/2013 JAMES FRANKLIN APRNA S 719.47 PAIN- FOOT 11/01/2013 TAMMY LU DO Derik Ot 300.00 ANXIETY STATE NOS 11/01/2013 TAMMY LU DO Derik Ot 786.01 HYPERVENTILATION 11/01/2013 TAMMY LU DO Derik Ot 786.05 SHORTNESS OF BREATH 11/19/2013 JAMES FRANKLIN APRNA S 300.4 DYSTHYMIC DISORDER 11/19/2013 JAMES FRANKLIN APRNA S 300.4 DYSTHYMIC DISORDER 11/19/2013 JAMES FRANKLIN APRNA S 300.4 DYSTHYMIC DISORDER 07/01/2014 JAMES FRANKLIN APRNA S 702.19 SEBORRHEIC KERATOSIS 07/01/2014 JAMES FRANKLIN APRNA S 719.46 PAIN- KNEE 07/01/2014 JAMES FRANKLIN APRNA S 783.1 WEIGHT GAIN ABNORMAL 07/01/2014 JAMES FRANKLIN APRNA S 702.19 SEBORRHEIC KERATOSIS 07/01/2014 JAMES FRANKLIN APRNA S 719.46 PAIN- KNEE 07/01/2014 JAMES FRANKLIN APRNA S 783.1 WEIGHT GAIN ABNORMAL 09/21/2014 MARK FRANKLIN APRN S 564.1 IRRITABLE BOWEL SYNDROME 08/11/2015 Ot 715.95 08/11/2015 Ot V72.63 08/11/2015 Ot V74.8 08/11/2015 Ot 785.1 08/11/2015 Ot 786.09 08/11/2015 Ot 786.50 08/11/2015 Ot 785.1 08/11/2015 Ot 786.09 08/11/2015 Ot 786.50 08/11/2015 KARYN GARCIA MD Ot 305.1 08/11/2015 KARYN GARCIA MD Ot 401.9 08/11/2015 KARYN GARCIA MD Ot 424.0 08/11/2015 KARYN GARCIA MD Ot 305.1 08/11/2015 KARYN GARCIA MD Ot 401.9 08/11/2015 KARYN GARCIA MD Ot 424.0 10/25/2015 Ot 715.95 OSTEOARTHROS NOS-PELVIS 10/25/2015 Ot V72.63 PRE-PROCEDURAL LABORATORY EXAMINATION 10/25/2015 Ot V74.8 SCREEN-BACTERIAL DIS NEC 10/25/2015 Ot 785.1 PALPITATIONS 10/25/2015 Ot 786.09 RESPIRATORY ABNORM NEC 10/25/2015 Ot 786.50 CHEST PAIN NOS 10/25/2015 Ot 785.1 PALPITATIONS 10/25/2015 Ot 786.09 RESPIRATORY ABNORM NEC 10/25/2015 Ot 786.50 CHEST PAIN NOS 10/25/2015 KARYN GARCIA MD Ot 305.1 TOBACCO USE DISORDER 10/25/2015 KARYN GARCIA MD Ot 401.9 HYPERTENSION NOS 10/25/2015 KARYN GARCIA MD Ot 424.0 MITRAL VALVE DISORDER 10/25/2015 KARYN GARCIA MD Ot 305.1 TOBACCO USE DISORDER 10/25/2015 KARYN GARCIA MD Ot 401.9 HYPERTENSION NOS 10/25/2015 KARYN GARCIA MD Ot 424.0 MITRAL VALVE DISORDER 11/03/2015 KARYN GARCIA MD Ot 305.1 TOBACCO USE DISORDER 11/03/2015 KARYN GARCIA MD Ot 401.9 HYPERTENSION NOS 11/03/2015 KARYN GARCIA MD Ot 424.0 MITRAL VALVE DISORDER 10/27/2016 Ot 785.1 PALPITATIONS 10/27/2016 Ot 786.09 RESPIRATORY ABNORM NEC 10/27/2016 Ot 786.50 CHEST PAIN NOS 10/27/2016 EDWIN VIDAL APRN Ot F17.210 NICOTINE DEPENDENCE, CIGARETTES, UNCOMPL 10/27/2016 EDWIN VIDAL BOAT FINISHER Ot I10 ESSENTIAL (PRIMARY) HYPERTENSION 10/27/2016 EDWIN VIDAL APRN Ot R11.0 NAUSEA 10/27/2016 EDWIN VIDAL APRN Ot R42 DIZZINESS AND GIDDINESS 10/27/2016 EDWIN VIDAL APRN Ot T40.0X5A ADVERSE EFFECT OF OPIUM, INITIAL ENCOUNT 10/27/2016 EDWIN VIDAL APRN Ot Z79.82 SPECIAL EFFECTS DESIGNER (CURRENT) USE OF ASPIRIN 10/27/2016 EDWIN VIDAL APRN Ot Z79.899 OTHER SNF (CURRENT) DRUG THERAPY 10/27/2016 Ot 715.95 OSTEOARTHROS NOS-PELVIS 10/27/2016 Ot V72.63 PRE-PROCEDURAL LABORATORY EXAMINATION 10/27/2016 Ot V74.8 SCREEN-BACTERIAL DIS NEC 10/27/2016 Ot 785.1 PALPITATIONS 10/27/2016 Ot 786.09 RESPIRATORY ABNORM NEC 10/27/2016 Ot 786.50 CHEST PAIN NOS 10/27/2016 Ot 785.1 PALPITATIONS 10/27/2016 Ot 786.09 RESPIRATORY ABNORM NEC 10/27/2016 Ot 786.50 CHEST PAIN NOS 10/27/2016 KARYN GARCIA MD Ot 305.1 TOBACCO USE DISORDER 10/27/2016 KARYN GARCIA MD Ot 401.9 HYPERTENSION NOS 10/27/2016 KARYN GARCIA MD Ot 424.0 MITRAL VALVE DISORDER 10/30/2016 EDWIN VIDAL APRN Ot F17.210 NICOTINE DEPENDENCE, CIGARETTES, UNCOMPL 10/30/2016 EDWIN VIDAL APRN Ot I10 ESSENTIAL (PRIMARY) HYPERTENSION 10/30/2016 EDWIN VIDAL APRN Ot R11.0 NAUSEA 10/30/2016 EDWIN VIDAL APRN Ot R42 DIZZINESS AND GIDDINESS 10/30/2016 EDWIN VIDAL APRN Ot T40.0X5A ADVERSE EFFECT OF OPIUM, INITIAL ENCOUNT 10/30/2016 EDWIN VIDAL APRN Ot Z79.82 SPECIAL EFFECTS DESIGNER (CURRENT) USE OF ASPIRIN 10/30/2016 EDWIN VIDLA APRN Ot Z79.899 OTHER SPECIAL EFFECTS DESIGNER (CURRENT) DRUG THERAPY 11/02/2016 EDWIN VIDAL APRN Ot F17.210 NICOTINE DEPENDENCE, CIGARETTES, UNCOMPL 11/02/2016 EDWIN VIDAL APRN Ot I10 ESSENTIAL (PRIMARY) HYPERTENSION 11/02/2016 EDWIN VIDAL APRN Ot R11.0 NAUSEA 11/02/2016 EDWIN VIDAL APRN Ot R42 DIZZINESS AND GIDDINESS 11/02/2016 EDWIN VIDAL APRN Ot T40.0X5A ADVERSE EFFECT OF OPIUM, INITIAL ENCOUNT 11/02/2016 EDWIN VIDAL APRN Ot Z79.82 SNF (CURRENT) USE OF ASPIRIN 11/02/2016 EDWIN VIDAL APRN Ot Z79.899 OTHER SNF (CURRENT) DRUG THERAPY 11/09/2016 CONRAD MEADE MD, Ot F10.129 ALCOHOL ABUSE WITH INTOXICATION, UNSPECI 11/09/2016 CONRAD MEADE MD, Ot F17.210 NICOTINE DEPENDENCE, CIGARETTES, UNCOMPL 11/09/2016 CONRAD MEADE MD, Ot I10 ESSENTIAL (PRIMARY) HYPERTENSION 11/09/2016 CONRAD MEADE MD, Ot M19.072 PRIMARY OSTEOARTHRITIS, LEFT ANKLE AND F 11/09/2016 CONRAD MEADE MD, Ot S92.352D DISP FX OF 5TH METATARSAL BONE, L FT , 7T 11/09/2016 CONRAD MEADE MD Ot X58.XXXD EXPOSURE TO OTHER SPECIFIED FACTORS , SUB 11/09/2016 CONRAD MEADE MD, Ot Y90.8 BLOOD ALCOHOL LEVEL OF 240 MG/100 ML OR 11/09/2016 CONRAD MEADE MD Ot Y99.8 OTHER EXTERNAL CAUSE STATUS 11/09/2016 CONRAD MEADE MD Ot Z79.82 SPECIAL EFFECTS DESIGNER (CURRENT) USE OF ASPIRIN 11/09/2016 CONRAD MEADE MD Ot Z79.899 OTHER SPECIAL EFFECTS DESIGNER (CURRENT) DRUG THERAPY 11/12/2016 CONRAD MEADE MD, Ot F10.129 ALCOHOL ABUSE WITH INTOXICATION, UNSPECI 11/12/2016 CONRAD MEADE MD, Ot F17.210 NICOTINE DEPENDENCE, CIGARETTES, UNCOMPL 11/12/2016 CONRAD MEAED MD Ot I10 ESSENTIAL (PRIMARY) HYPERTENSION 11/12/2016 CONRAD MEADE MD Ot M19.072 PRIMARY OSTEOARTHRITIS, LEFT ANKLE AND F 11/12/2016 CONRAD MEADE MD, Ot S92.352D DISP FX OF 5TH METATARSAL BONE, L FT , 7T 11/12/2016 CONRAD MEADE MD Ot X58.XXXD EXPOSURE TO OTHER SPECIFIED FACTORS , SUB 11/12/2016 CONRAD MEADE MD Ot Y90.8 BLOOD ALCOHOL LEVEL OF 240 MG/100 ML OR 11/12/2016 CONRAD MEADE MD Ot Y99.8 OTHER EXTERNAL CAUSE STATUS 11/12/2016 CONRAD MEADE MD Ot Z79.82 SNF (CURRENT) USE OF ASPIRIN 11/12/2016 CONRAD MEADE MD Ot Z79.899 OTHER SPECIAL EFFECTS DESIGNER (CURRENT) DRUG THERAPY Procedures Code Description Performed By Performed On 81.51 01/30/2011 81.51 TOTAL HIP REPLACEMENT 11/12/2011 81.92 INJECTION INTO JOINT 11/28/2011 99.23 INJECT STEROID 22019 HOLTER MONITOR 63834 ROUTINE VENIPUNCTURE 06/03/2012 34542 LIVER PANEL (LFT) 06/03/2012 11708 LIPID PANEL 06/03 25150 XRAY ANKLE L, 2 VIEW 03/06/2013 85195 XRAY FOOT LEFT COMP MIN 3 VIEWS 03/06/2013 74912 ROUTINE VENIPUNCTURE 08/12/2013 7409341 GFR CALC (RESULT ONLY) 08/12/2013 11061 CMP 08/12/2013 24255 LIPID PANEL 08/12 Cardiolog Karyn Garcia 11/20/2013 28826 XRAY KNEE LEFT 3 VIEWS 07/01/2014 Results Test Result Range Complete blood count (CBC) with automated white blood cell (WBC) differential - 10/27/16 17:05 Blood leukocytes automated count (number/volume) 8.3 10*3/ uL 4.3-11.0 Blood erythrocytes automated count (number/volume) 5.23 10*6 /uL 4.35-5.85 Venous blood hemoglobin measurement (mass/volume) 15.2 g/dL 11.5-16.0 Blood hematocrit (volume fraction) 45 % 35-52 Automated erythrocyte mean corpuscular volume 86 [foz_us] 80-99 Automated erythrocyte mean corpuscular hemoglobin (mass per erythrocyte) 29 pg 25-34 Automated erythrocyte mean corpuscular hemoglobin concentration measurement ( mass/volume) 34 g/dL 32-36 Automated erythrocyte distribution width ratio 14.6 % 10.0-14.5 Automated blood platelet count (count/volume) 211 10*3/uL 130-400 Automated blood platelet mean volume measurement 9.8 [foz_us ] 7.4-10.4 Automated blood neutrophils/100 leukocytes 83 % 42-75 Automated blood lymphocytes/100 leukocytes 13 % 12-44 Blood monocytes/100 leukocytes 3 % 0-12 Automated blood eosinophils/100 leukocytes 0 % 0-10 Automated blood basophils/100 leukocytes 0 % 0-10 Blood neutrophils automated count (number/volume) 6.9 10*3 1.8-7.8 Blood lymphocytes automated count (number/volume) 1.1 10*3 1.0-4.0 Blood monocytes automated count (number/volume) 0.3 10*3 0.0-1.0 Automated eosinophil count 0.0 10*3/uL 0.0-0.3 Automated blood basophil count (count/volume) 0.0 10*3/uL 0.0-0.1 Comprehensive metabolic panel - 10/27/16 17:05 Serum or plasma sodium measurement (moles/volume) 138 mmol/ L 135-145 Serum or plasma potassium measurement (moles/volume) 4.2 mmol/L 3.6-5.0 Serum or plasma chloride measurement (moles/volume) 102 mmol /L 98-107 Carbon dioxide 27 mmol/L 21-32 Serum or plasma anion gap determination (moles/volume) 9 mmol/L 5-14 Serum or plasma urea nitrogen measurement (mass/volume) 19 mg/dL 7-18 Serum or plasma creatinine measurement (mass/volume) 0.73 mg /dL 0.60-1.30 Serum or plasma urea nitrogen/creatinine mass ratio 26 NRG Serum or plasma creatinine measurement with calculation of estimated glomerular filtration rate > NRG Serum or plasma glucose measurement (mass/volume) 118 mg/dL 70-105 Serum or plasma calcium measurement (mass/volume) 10.0 mg/ dL 8.5-10.1 Serum or plasma total bilirubin measurement (mass/volume) 0.4 mg/dL 0.1-1.0 Serum or plasma alkaline phosphatase measurement (enzymatic activity/volume) 86 U/L 40-136 Serum or plasma aspartate aminotransferase measurement (enzymatic activity/ volume) 23 U/L 5-34 Serum or plasma alanine aminotransferase measurement (enzymatic activity/volume ) 21 U/L 0-55 Serum or plasma protein measurement (mass/volume) 7.3 g/dL 6.4-8.2 Serum or plasma albumin measurement (mass/volume) 4.3 g/dL 3.2-4.5 Complete urinalysis with reflex to culture - 10/27/16 17:11 Urine color determination YELLOW NRG Urine clarity determination SLIGHTLY CLOUDY NRG Urine pH measurement by test strip 6 5- 9 Specific gravity of urine by test strip 1.020 1.016-1.022 Urine protein assay by test strip, semi-quantitative NEGATIVE NEGATIVE Urine glucose detection by automated test strip NEGATIVE NEGATIVE Erythrocytes detection in urine sediment by light microscopy NEGATIVE NEGATIVE Urine ketones detection by automated test strip NEGATIVE NEGATIVE Urine nitrite detection by test strip NEGATIVE NEGATIVE Urine total bilirubin detection by test strip NEGATIVE NEGATIVE Urine urobilinogen measurement by automated test strip (mass/volume) NORMAL NORMAL Urine leukocyte esterase detection by dipstick 1+ NEGATIVE Automated urine sediment erythrocyte count by microscopy (number/high power field) NONE NRG Automated urine sediment leukocyte count by microscopy (number/high power field ) NONE NRG Bacteria detection in urine sediment by light microscopy TRACE NRG Squamous epithelial cells detection in urine sediment by light microscopy 2-5 NRG Crystals detection in urine sediment by light microscopy NONE NRG Casts detection in urine sediment by light microscopy NONE NRG Mucus detection in urine sediment by light microscopy NEGATIVE NRG Complete urinalysis with reflex to culture NO NRG Complete blood count (CBC) with automated white blood cell (WBC) differential - 11/09/16 22:20 Blood leukocytes automated count (number/volume) 6.8 10*3/ uL 4.3-11.0 Blood erythrocytes automated count (number/volume) 5.17 10*6 /uL 4.35-5.85 Venous blood hemoglobin measurement (mass/volume) 14.8 g/dL 11.5-16.0 Blood hematocrit (volume fraction) 44 % 35-52 Automated erythrocyte mean corpuscular volume 86 [foz_us] 80-99 Automated erythrocyte mean corpuscular hemoglobin (mass per erythrocyte) 29 pg 25-34 Automated erythrocyte mean corpuscular hemoglobin concentration measurement ( mass/volume) 33 g/dL 32-36 Automated erythrocyte distribution width ratio 14.8 % 10.0-14.5 Automated blood platelet count (count/volume) 233 10*3/uL 130-400 Automated blood platelet mean volume measurement 9.7 [foz_us ] 7.4-10.4 Automated blood neutrophils/100 leukocytes 50 % 42-75 Automated blood lymphocytes/100 leukocytes 40 % 12-44 Blood monocytes/100 leukocytes 6 % 0-12 Automated blood eosinophils/100 leukocytes 3 % 0-10 Automated blood basophils/100 leukocytes 0 % 0-10 Blood neutrophils automated count (number/volume) 3.4 10*3 1.8-7.8 Blood lymphocytes automated count (number/volume) 2.7 10*3 1.0-4.0 Blood monocytes automated count (number/volume) 0.4 10*3 0.0-1.0 Automated eosinophil count 0.2 10*3/uL 0.0-0.3 Automated blood basophil count (count/volume) 0.0 10*3/uL 0.0-0.1 Comprehensive metabolic panel - 11/09/16 22:20 Serum or plasma sodium measurement (moles/volume) 143 mmol/ L 135-145 Serum or plasma potassium measurement (moles/volume) 3.4 mmol/L 3.6-5.0 Serum or plasma chloride measurement (moles/volume) 108 mmol /L 98-107 Carbon dioxide 18 mmol/L 21-32 Serum or plasma anion gap determination (moles/volume) 17 mmol/L 5-14 Serum or plasma urea nitrogen measurement (mass/volume) 15 mg/dL 7-18 Serum or plasma creatinine measurement (mass/volume) 0.67 mg /dL 0.60-1.30 Serum or plasma urea nitrogen/creatinine mass ratio 22 NRG Serum or plasma creatinine measurement with calculation of estimated glomerular filtration rate > NRG Serum or plasma glucose measurement (mass/volume) 114 mg/dL 70-105 Serum or plasma calcium measurement (mass/volume) 9.3 mg/dL 8.5-10.1 Serum or plasma total bilirubin measurement (mass/volume) 0.2 mg/dL 0.1-1.0 Serum or plasma alkaline phosphatase measurement (enzymatic activity/volume) 88 U/L 40-136 Serum or plasma aspartate aminotransferase measurement (enzymatic activity/ volume) 21 U/L 5-34 Serum or plasma alanine aminotransferase measurement (enzymatic activity/volume ) 16 U/L 0-55 Serum or plasma protein measurement (mass/volume) 6.7 g/dL 6.4-8.2 Serum or plasma albumin measurement (mass/volume) 4.1 g/dL 3.2-4.5 Serum or plasma ethanol measurement (mass/volume) - 11/09/16 22:20 Serum or plasma ethanol measurement (mass/volume) 246 mg/dL <10 Encounters ACCT No. Visit Date/Time Discharge Status Pt. Type Provider Facility Loc./Unit Complaint [id number] 11/09/2016 22:02:00 2016 22:48:00 DIS Emergency DESHAUN REYNOSO, CONRAD Johns [facility] ER L FOOT PAIN [id number] 10/27/2016 16:25:00 2016 18:00:00 DIS Emergency EDWIN VIDAL BOAT FINISHER [facility] ER DIZZINESS/NAUSEA [id number] 11/01/2013 16:16:00 2013 19:50:00 DIS Emergency TAMMY LU DO [facility] ER SOA,WEAKNESS [id number] 09/24/2013 13:54:00 2013 23:59:59 CLS Outpatient NITHIN REYNOSO, KARYN Norris [facility] CARD HTN [id number] 07/15/2012 13:00:00 Document Registration [id number] 04/30/2012 10:47:00 Document Registration [id number] 04/15/2012 13:07:00 Document Registration [id number] 11/16/2011 13:40:00 Document Registration [id number] 11/12/2011 05:52:00 Document Registration [id number] 11/05/2011 10:15:00 Document Registration [id number] 01/29/2011 06:04:00 Document Registration
== END 2016-12-30 16:05 | disposition home or self-care (01) ==
LOC: EDUNIT# 13:23 → ER 13:24
DX: Z79.82 Long term (current) use of aspirin; I10 Essential (primary) hypertension; M19.90 Unspecified osteoarthritis, unspecified site; E78.00 Pure hypercholesterolemia, unspecified; F41.9 Anxiety disorder, unspecified; R10.84 Generalized abdominal pain; R19.7 Diarrhea, unspecified; F17.210 Nicotine dependence, cigarettes, uncomplicated
CPT/HCPCS: 36415; 80053; 81000; 85007; 85027; 96360

== ENCOUNTER → 2018-01-07 | Outpatient (CLI) | payer MEDICARE ==
[~2018-01-07] MED LIST changes: +HYOS0.1283 SL
== END ==
LOC: CARD 12:53
PROVIDERS: ATTEND Internal Medicine Cardiovascular Disease
DX: I10 Essential (primary) hypertension (principal); I49.3 Ventricular premature depolarization; R60.9 Edema, unspecified; F41.9 Anxiety disorder, unspecified
CPT/HCPCS: 93306

== ENCOUNTER → 2020-10-12 | Outpatient (CLI) | payer MEDICARE ==
[~2020-10-12] MED LIST changes: -TRAM50TA2; +TRM50T
--- NOTE | 2020-10-12 18:07 | Diagnostic Imaging Report ---
CT lung screening. INDICATION: 34 pack year smoking history for low-dose CT screening. TECHNIQUE: Noncontrast, low-dose CT imaging performed according to the lung cancer screening protocol. Auto Exposure Controls were utilize during the CT exam to meet ALARA standards for radiation dose reduction. COMPARISON: CT angiogram chest 11/01/2013. FINDINGS: No dominant lung mass or suspicious pulmonary nodule. There is no finding suggestive of CT evidence for lung cancer in this patient. There is no thoracic lymphadenopathy. No effusion or pneumothorax. The visualized upper abdomen shows low-density fat-containing bilateral adrenal adenomas or hyperplasia, stable from prior. No acute chest wall pathology. IMPRESSION:No mass or finding of lung cancer. No acute appearing abnormality. LUNG-RADS CATEGORY: Category 1 MODIFIER: None OTHER SIGNIFICANT FINDINGS:Chronic benign adrenal nodules. Dictated by: Dictated on workstation # [id number]
== END ==
LOC: RAD 14:57
PROVIDERS: ATTEND Internal Medicine
DX: Z12.2 Encounter for screening for malignant neoplasm of respiratory organs (principal); F17.210 Nicotine dependence, cigarettes, uncomplicated
CPT/HCPCS: 71271

== ENCOUNTER → 2022-04-04 | Outpatient (CLI) | payer MEDICARE ==
[~2022-04-04] VITALS: Ht 157 cm; Wt 86.0 kg
[~2022-04-04] MED LIST changes: +CATHETER FLUSH 10 ML SYR IVP PRN; +REGADENOSON 0.4 MG/5 ML SYR (LEXISCAN) IV ONE
[2022-04-04 13:52] VITALS: BP 116/77
--- NOTE | 2022-04-04 15:16 | Cardiology Stress Test Report ---
Stress Test Report Date of Procedure/Referring: Date of Procedure: Apr 04, 2022 PCP Isai Snell MD Admitting Physician Admitting Physician: Attending Physician: Riky Garcia MD Indications: CP Baseline Heart Rate: 75 Baseline Blood Pressure: Blood Pressure Systolic: 116 Blood Pressure Diastolic: 77 Baseline Vitals Vital Signs Date Time Temp Pulse Resp B/P (MAP) Pulse Ox O2 Delivery O2 Flow Rate FiO2 04/04/22 13:52 75 116/77 (90) 92 Baseline EKG: Baseline EKG: NSR Summary After explaining the procedure to the patient, she signed a consent and then brought to the stress nuclear laboratory. Patient received 0.4 mg Lexiscan for stress test, ECG, heart rate and blood pressure were monitored continuously. Resting and stress dose of radio tracer were injected, imaging was acquired and reviewed in short axis, horizontal long axis and vertical long axis views. TID: 1.08 SSS: 5 SDS: 1 EF: 84 1. Patient tolerated Lexiscan well 2. Breast attenuation with typical female pattern, no significant ischemia or infarction on SPECT images 3. Normal left ventricular size, ejection fraction 84% Copy Copies To 1: [facility] RIKY GARCIA MD Apr 04, 2022 15:16
== END ==
LOC: CARD 12:30
PROVIDERS: ATTEND Internal Medicine Cardiovascular Disease
DX: I25.10 Atherosclerotic heart disease of native coronary artery without angina pectoris (principal); I10 Essential (primary) hypertension
CPT/HCPCS: 78452; 93017; A9502

== ENCOUNTER → 2022-04-23 | Outpatient (CLI) | payer MEDICARE ==
[~2022-04-23] MED LIST changes: -CATHETER FLUSH 10 ML SYR IVP PRN; -REGADENOSON 0.4 MG/5 ML SYR (LEXISCAN) IV ONE
== END ==
LOC: CARD 14:20
PROVIDERS: ATTEND Internal Medicine Cardiovascular Disease
DX: I11.9 Hypertensive heart disease without heart failure (principal)
CPT/HCPCS: 93306

== ENCOUNTER → 2022-05-07 | Outpatient (CLI) | payer MEDICARE ==
--- NOTE | 2022-05-07 15:56 | Diagnostic Imaging Report ---
EXAM: CT left knee without contrast. DATE: May 07, 2022. INDICATION: 72-year-old female, left knee pain. Surgical planning. COMPARISON: None. TECHNIQUE: Axial CT images of the knee without contrast were obtained. Axial CT images at the level of the hip and ankle were also obtained for measurements of femoral version and tibial torsion and surgical planning. All CT scans use one or more of the following dose optimizing techniques: automated exposure control, MA and/or KvP adjustment based on patient size and exam type or iterative reconstruction. FINDINGS: There are limitations of the exam for diagnostic assessment given axial only imaging. This exam is primarily for surgical planning. There is a left total hip prosthesis with associated hardware related artifact. There is a sclerotic lesion in the left distal femur, most likely reflecting a bone infarct or enchondroma. There is moderate to severe patellofemoral compartment joint space loss with small osteophytes. The medial and lateral compartments are not well assessed on axial only imaging. There is a small to moderate sized knee joint effusion. There is a Burgess's cyst. IMPRESSION: 1. Advanced arthritis of the left knee. 2. Burgess's cyst. Dictated by: Dictated on workstation # [id number]
== END ==
LOC: RAD 13:47
PROVIDERS: ATTEND Orthopaedic Surgery
DX: M17.12 Unilateral primary osteoarthritis, left knee (principal); M71.22 Synovial cyst of popliteal space [Baker], left knee
CPT/HCPCS: 73200

== ENCOUNTER 2022-05-15 11:01 | Outpatient (CLI) | payer MEDICARE ==
[~2022-05-15] VITALS: Ht 154.9 cm; Wt 84.0 kg
[2022-05-15 14:13] LABS: BILIRUBIN,URINE NEGATIVE (NEGATIVE); CLARITY,URINE SL CLOUDY; COLOR,URINE YELLOW; GLUCOSE, URINE (UA) NEGATIVE (NEGATIVE); KETONES,URINE NEGATIVE (NEGATIVE); LEUKOCYTE ESTERASE ,URINE NEGATIVE (NEGATIVE); NITRITE,URINE POSITIVE (NEGATIVE); PROTEIN,URINE NEGATIVE (NEGATIVE)
[2022-05-15 14:21] LABS: BACTERIA,URINE LARGE /HPF; SQUAMOUS EPITHELIAL CELL,UR RARE /HPF
[2022-05-15] MEDS ORDERED: ATOR40TA70 PO (14:43)
[2022-05-15] MEDS ORDERED: HYDR25TA4 PO (14:43)
[2022-05-15] MEDS ORDERED: CETI10CA PO (14:43)
[2022-05-15] MEDS ORDERED: GUAI600T43 PO (14:43)
[2022-05-15] MEDS ORDERED: METO-351 PO (14:43)
[2022-05-15 14:45] LABS: INR 0.9 (0.8-1.4); PROTHROMBIN TIME PATIENT 12.9 SEC (12.2-14.7)
[2022-05-15 14:46] LABS: BASOPHILS % (AUTO) 1 % (0-10); EOSINOPHILS # (AUTO) 0.2 10^3/uL (0.0-0.3); EOSINOPHILS % (AUTO) 2 % (0-10); HEMATOCRIT 48 % (35-52); HEMOGLOBIN 16.1 g/dL (11.5-16.0); LYMPHOCYTES # (AUTO) 2.1 10^3/uL (1.0-4.0); LYMPHOCYTES % (AUTO) 30 % (12-44); MEAN CORPUSCULAR HEMOGLOBIN 29 pg (25-34); MEAN CORPUSCULAR HGB CONC 33 g/dL (32-36); MEAN CORPUSCULAR VOLUME 86 fL (80-99); MEAN PLATELET VOLUME 9.6 fL (9.0-12.2); MONOCYTES # (AUTO) 0.4 10^3/uL (0.0-1.0); MONOCYTES % (AUTO) 7 % (0-12); NEUTROPHILS # (AUTO) 4.1 10^3/uL (1.8-7.8); NEUTROPHILS % (AUTO) 60 % (42-75); PLATELET COUNT 214 10^3/uL (130-400); WHITE BLOOD COUNT 6.8 10^3/uL (4.3-11.0)
--- NOTE | 2022-05-15 14:52 | Physical Therapy Pre-Op Eval ---
PT Pre-Surgical Assessment Type of Surgery Type of Surgery: left TKR Prior Level of Function Current Living Status: Alone Locomotion (Upon Admit): Front Wheeled Walker PLOF DME: Front Wheeled Walker Subjective Home: Apartment Current Living Status: Alone Entry Into Home: Level Entry Motor Control Motor Control: Motor Control WNL ROM ROM: WFL, except focal deficit Strength Strength: WFL Transfers Transfers (B, C, W/C) (FIM): 6 Gait Gait (FIM): 6 Gait Distance (FIM): 6 Distance: 150' Gait Assistive Device: FWW Treatment Rendered Treatment: Patient instructed in assistive device, supported ambulation. Patient instructed in and given written program of ROM and strengthening exercises to be preformed post-op. Patient instructed in movement precautions where applicable. Patient demonstrates understandings of post-operative therapy protocol including gait pattern and exercise program. Pre-operative instruction completed; await physical therapy orders after surgery. Treatment Goal Met: Yes Assessment Goals Acheived: I Ambulation w/ FWW, Understands P-op Precaut, I Post-op Exercises Charges/GCodes Time In: 1355 Time Out: 1405 Total Billed Treatment Time: 10 Total Billed Treatment 1 Educ FARTUN COREA PT May 15, 2022 14:52
[2022-05-15 14:53] LABS: ALBUMIN 4.1 GM/DL (3.2-4.5); BILIRUBIN,TOTAL 0.7 MG/DL (0.1-1.0); CALCIUM 9.6 MG/DL (8.5-10.1); CREATININE SERUM 0.65 MG/DL (0.60-1.30); POTASSIUM 4.1 MMOL/L (3.6-5.0); TOTAL PROTEIN 7.5 GM/DL (6.4-8.2)
[2022-05-15 14:54] LABS: ERYTHROCYTE SEDIMENTATION RATE 4 MM/HR (0-30)
[2022-05-15 15:44] VITALS: BP 132/66
--- NOTE | 2022-05-15 16:43 | Diagnostic Imaging Report ---
EXAMINATION: Chest, two views. HISTORY: Preoperative evaluation. COMPARISON: None available. FINDINGS: Heart size and pulmonary vasculature are normal. The lungs are clear without consolidation, pleural effusion, or pneumothorax. The osseous structures are intact. IMPRESSION: 1. No acute radiographic abnormality in the chest. Dictated by: Dictated on workstation # [id number]
== END 2022-05-15 16:02 ==
LOC: PREOP 11:01
PROVIDERS: ATTEND Orthopaedic Surgery
DX: Z01.818 Encounter for other preprocedural examination (principal); M17.12 Unilateral primary osteoarthritis, left knee
CPT/HCPCS: 36415; 71046; 80053; 81000; 82308; 85025; 85610; 85652; 86850; 86900; 86901; 87077; 87081; 87088; 93005

== ENCOUNTER 2022-05-23 06:00 | Inpatient (IN) | payer MEDICARE ==
--- NOTE | 2022-05-14 07:25 | HISTORY AND PHYSICAL ---
DATE OF SERVICE: 05/23/2022 ADMISSION HISTORY AND PHYSICAL DATE OF ADMISSION: 05/23/2022. This will be for inpatient admission on 05/23/2022 for left total knee arthroplasty. The patient will require regular inpatient admission due to comorbidities and need for physical therapy, need for pain management. HISTORY OF PRESENT ILLNESS: The patient is a 72-year-old female with longstanding left knee pain. She also has a history of lumbar radiculopathy. She has had bilateral hip replacements. She underwent an epidural injection, which did help with her back pain and radicular symptoms, but she continues to have left knee pain. She describes pain laterally. She describes it as sharp at times, but other times. She has undergone treatment with steroid injection as well as Synvisc with only temporary relief of her symptoms due to functional impairment and failure to improve with conservative measures, the patient elected to proceed with surgical intervention. REVIEW OF SYSTEMS: No chest pain, no shortness of breath, and no dysuria. PAST MEDICAL HISTORY: Inflammatory arthritis. PAST SURGICAL HISTORY: Breast reduction, bilateral total hip arthroplasties, tonsillectomy and ankle. FAMILY HISTORY: Significant for diabetes, ischemic heart disease. Primary care provider is Dr. Snell. MEDICATIONS: Aspirin, hydrochlorothiazide, cyclobenzaprine, Naprosyn. ALLERGIES: PENICILLIN, AMLODIPINE, TRAMADOL. SOCIAL HISTORY: The patient smokes a quarter pack of cigarettes a day. Reports social alcohol use. Radiographs reveal valgus alignment. She has marked lateral joint space narrowing and complete loss of patellofemoral joint space. PHYSICAL EXAMINATION: GENERAL: The patient is well-developed, well-nourished, in no acute distress. HEENT: Normocephalic, atraumatic. Pupils equal, round, react to light. Oropharynx is clear. NECK: Supple. No lymphadenopathy. LUNGS: Clear to auscultation bilaterally. HEART: Regular rate and rhythm. ABDOMEN: Soft, nontender, nondistended. EXTREMITIES: The left knee demonstrates valgus alignment. She is markedly tender along the medial joint line. She has pain medially with Keisha's. There is no varus or valgus laxity. Negative anterior and posterior drawer. Range of motion 0/2/120. Negative straight leg raise. No pain with hip range of motion. IMPRESSION: Severe left knee osteoarthritis. PLAN: Left total knee arthroplasty. The risks, benefits, options, indications of recovery have been discussed at length with the patient. She understands and wishes to proceed. Job ID: [id number] DocumentID: [id number] Dictated Date: 05/07/2022 11:02:38 Hogshead Hooper Date: 05/07/2022 11:31:00 Dictated By: JACKELYN SALEH MD
[2022-05-23] VITALS (12 sets, daily range): BP systolic 107–132; BP diastolic 51–97
[~2022-05-23] VITALS: Ht 155 cm; Wt 84.0 kg
[~2022-05-23 06:00] MED LIST changes: +ATOR40TA70 PO; +CETI10CA PO; +GUAI600T43 PO; +HYDR25TA4 PO; +METO-351 PO
--- OUTSIDE RECORDS SUMMARY | 2022-05-23 06:03 | XMS REPORT | Clinical Summary ---
Author Author [facility] Organization [facility] Address Unknown Phone Unavailable Care Team Providers Care Operations [place] Name Role Phone No Pcp, Na PCP Unavailable Source Comments Some departments are not documenting in the electronic medical record. If you d o not see the information that you expected, contact Release of Information in [facility] [employer] Information Management department at [phone] for further assistan ce in locating additional records.[facility] Allergies Comments Active Allergy Reactions Severity Noted Date Penicillins SYNCOPE High 03/24/2015 Medications End Date Status Medication Sig Dispensed Refills Start Date Active gabapentin (NEURONTIN) Take 300 mg 0 02 300 mg capsule by mouth. 1 Active hydroCHLOROthiazide daily. 0 (HYDRODIURIL) 25 mg 4 tablet Active naproxen (NAPROSYN) 500 twice daily. 0 mg tablet 1 Active metoprolol XL (TOPROL XL) daily. 0 05/24 25 mg extended release 3 tablet Active aspirin EC 81 mg tablet aspirin 81 mg 0 tablet,delaye 4 d release daily Active cetirizine HCl (ZYRTEC Take by 0 PO) mouth. Active Problems Not on file Surgical History Surgery Date Site/Laterality Comments BREAST REDUCTION HIP SURGERY Bilateral TONSILLECTOMY Medical History Medical History Date Comments Scoliosis Family History Medical History Relation Name Comments Diabetes Father Heart problem Father Back pain Mother Heart problem Mother Osteoporosis Mother Scoliosis Mother Relation Name Status Comments Father Mother Social History Date Tobacco Use Types Packs/Day Years Used Smoking Tobacco: Every Day Smokeless Tobacco: Never Comments Alcohol Use Standard Drinks/Week Yes 0 (1 standard drink = 0.6 o z pure alcohol) Sex Assigned at Date Recorded Not on file Obstetrics History Last Filed Vital Signs Reading Time Taken Comments Vital Sign 140/113 01/31/2021 1:18 PM CDT Blood Pressure 73 01/31/2021 12:00 PM CDT Pulse 36.4 C (97.5 F) 01/31/2021 12:00 PM CDT Temperature - - Respiratory Rate 98% 01/31/2021 1:18 PM CDT Oxygen Saturation - - Inhaled Oxygen Concentration 80.7 kg (178 lb) 01/31/2021 12:00 PM CDT Weight 154.9 cm (5' 1") 01/31/2021 12:00 PM CDT Height 33.63 01/31/2021 12:00 PM CDT Body Mass Index Plan of Treatment Health Maintenance Due Date Last Done Comments MEDICARE ANNUAL WELLNESS 1950 VISIT HEPATITIS C SCREENING 1967 PHYSICAL (COMPREHENSIVE) 1967 EXAM BREAST CANCER SCREENING 1989 COLORECTAL CANCER 1994 SCREENING OSTEOPOROSIS 2014 SCREENING/MONITORING COVID-19 VACCINE (3 - 11/18/2020 09/23/2020, Booster for Moderna 08/26/2020 series) ADVANCED CARE PLANNING 06/24/2021 DISCUSSION AND DOCUMENTATION DEPRESSION SCREENING 06/24/2021 INFLUENZA VACCINE 01/22/2022 DTAP/TDAP VACCINES (2 - 11/14/2026 11/14/2016 Tdap) PNEUMOCOCCAL VACCINE Completed 12/27/2017, 06/10/2017 SHINGLES RECOMBINANT Completed 11/20/2018, VACCINE 10/03/2009 Medical Devices Device Identifier Shelf Expiration Date Model / Serial / L ot Implanted Type Area Manufactur er Other-06/24/1984 Other Right: Ankle Implanted: 06/24/1984 (Quantity not on file) Description: Broken ankle one screw implanted Results Not on filefrom Last 3 Months Insurance Type Payer Benefit Subscriber ID Effective Phone Address Plan / Dates Group Medicare MEDICARE MEDICARE [id number] 2014- [phone] AND Present [address] [place] [phone] Care Teams Start Date End Date Operations [place] Relationship Specialty 01/20/21 No Pcp, Na PCP - General
[2022-05-23] MEDS ORDERED: fentaNYL INJ 100 MCG/2 ML AMP ONE (07:00)
[2022-05-23] MEDS ORDERED: LIDOCAINE PF 2% 5 ML (XYLOCAINE) VIAL ONE (07:00)
[2022-05-23] MEDS ORDERED: proPOfol 200 MG/20 ML (DIPRIVAN) VIAL IV ONE (07:00)
[2022-05-23] MEDS ORDERED: ONDANSETRON 4 MG/2 ML (SDV) Z0FRAN ONE (07:00)
[2022-05-23] MEDS ORDERED: MIDAZOLAM 2 MG/2 ML (VERSED) VIAL ONE (07:00)
[2022-05-23] MEDS ORDERED: ROPIVACAINE 5MG/ML 30ML VIAL ONE (07:02)
[2022-05-23] MEDS: LACTATED RINGERS 1,000 ML IV PRN ×2 (07:03→08:14)
--- NOTE | 2022-05-23 07:06 | Progress Note-Pre Operative ---
Pre-Operative Progress Note Date of Available H&P: May 07, 2022 Date H&P Reviewed: May 23, 2022 Time H&P Reviewed: 07:00 Changes from last HP none Pre-Operative Diagnosis: left knee primary osteoarthritis JACKELYN SALEH MD May 23, 2022 07:06
--- NOTE | 2022-05-23 07:06 | Progress Note-Post Operative ---
Post-Operative Progess Note Surgeon (s)/Information Technology Technician (s) Surgeon JACKELYN SALEH MD Information Technology Technician: Nicanor Prieto Pre-Operative Diagnosis left knee primary osteoarthritis Post-Operative Diagnosis left knee primary osteoarthritis Procedure & Operative Findings Date of Procedure 05/23/22 Procedure Performed/Findings left total knee arthroplasty Anesthesia Type GETA Estimated Blood Loss Estimated blood loss (mL): minimal Specimens/Packing Specimens Removed none Packing: none JACKELYN SALEH MD May 23, 2022 07:06
--- NOTE | 2022-05-23 07:08 | D/C HH Face to Face Order ---
D/C Face to Face Orders Reconcile Patient Problems Problems Reviewed?: Yes Instructions for Patient Via [facility] [employer], Patient Instructions/FollowUp: three weeks Physician to follow Patient: three weeks Discharge Diet for Home: Regular Diet Patient Data-Allergies,Ht & Wt Patient Allergies: Coded Allergies: Penicillins (Unverified Allergy, Unknown, PASSED OUT, 10/27/16) amlodipine (Unverified Allergy, Unknown, 05/15/22) tramadol (Unverified Allergy, Unknown, 05/15/22) Height (Feet): 5 Height (Inches): 3.00 Weight (Pounds): 170 Home Health Need/Face to Face Date of Face to Face: May 23, 2022 Clinical Findings: Muscle weakness, Pain with ambulation, Unsteady gait I have seen Pt [id number]: Yes Discharged To: Home Diagnosis/Conditions: left total knee arthroplasty Patient is Homebound due to: Muscle weakness, Pain w/ambulation Homebound Status Due to the above stated illness, injury or surgical procedure (medical condition or diagnosis) and associated clinical findings, the patient is homebound because of his/her inability to leave home except with aid of a supportive device and/or person AND leaving the home requires a considerable and taxing effort or is medically contraindicated. Pt req the following assistanc: Walker Home Health Nursing Orders Home Health Services Order: Physical Therapy-Evaluate & Treat DC left knee good and apply steri strips 06/06/22 Therapy Orders Therapy Orders: Physical Therapy, PT to assess for OT Therapy Specific Orders: Eval assistive deivces, Teach enviro modifications/safety, Gait training, Increase strength/endurance, Provider maintenance therapy, Restore ROM Certify Stmt I certify that this patient is under my care and that I, a nurse practitioner or a physician; a mailroom assistant working with me, had a face to face encounter that - meets the physician face to face encounter requirements with this patient as dated. JACKELYN SALEH MD May 23, 2022 07:08
[2022-05-23] MEDS ORDERED: ONDANSETRON 4 MG/2 ML (SDV) Z0FRAN IVP PRN ×2 (07:15→09:15)
[2022-05-23] MEDS ORDERED: morphine PCA 100 MG/100 ML BAG IV PRN (07:15)
[2022-05-23] MEDS ORDERED: diphenhydrAMINE 50 MG/ML INJ (BENADRYL) IVP PRN (07:15)
[2022-05-23] MEDS ORDERED: CEFUROXIME INJECTION 1,500 MG in NS (IVPB) 50 ML IV ONE (07:15)
[2022-05-23] MEDS ORDERED: INTRA-ARTICULAR IU ONE ×5 (07:45)
[2022-05-23] MEDS ORDERED: SEVOFLURANE (ULTANE) 15 ML INHAL SOLN ONE (08:53)
[2022-05-23] MEDS ORDERED: morphine INJ 10 MG/ML 1ML (SYR OR VIAL) ONE (09:11)
[2022-05-23] MEDS ORDERED: morphine INJ 10 MG/ML 1ML (SYR OR VIAL) IVP ONE (09:15)
[2022-05-23] MEDS ORDERED: MEPERIDINE (DEMEROL) INJ 50 MG/ML IVP ONE (09:15)
[2022-05-23] MEDS ORDERED: PROMETHAZINE INJ 25 MG/ML (PHENERGAN) AMP IVP ONE (09:15)
[2022-05-23] MEDS ORDERED: HYDROmorphone 2 MG/ML VIAL (DILAUDID) IV ONE (09:15)
--- NOTE | 2022-05-23 10:34 | Consultation - Hospitalist ---
HPI History of Present Illness: HPI/Chief Complaint CC: Medical management following knee replacement surgery HPI: This is a 72 yr old female clinic pt of [facility] who presents to room 411 after uncomplicated knee replacement by Dr. Alex. Currently she is doing a lot better. Pain is fairly well controlled. She denies any nausea. I did restart all of her home medication. Will monitor bp closely. Source: patient Exam Limitations: no limitations Date Seen 05/23/22 Attending Physician Isai Snell MD PCP Admitting Physician: Demian Alex MD Attending Physician: Demian Alex MD Referring Physician Date of Admission May 23, 2022 at 06:00 Home Medications & Allergies Home Medications Reviewed patient Home Medication Reconciliation performed by pharmacy medication reconciliations sterile supply technician and/or nursing. Patients Allergies have been reviewed. Allergies Allergies Coded Allergies Penicillins (Unverified Allergy, Unknown, PASSED OUT, 10/27/16) Past Oqedljy-Oaviro-Tmvlcp Hx Patient Social History Marrital Status: single Employed/Student: retired Smoking Status: Current Everyday Smoker Immunizations Up To Date First/Initial COVID19 Vaccinat: 2020 Second COVID19 Vaccination Akil: 2020 PED Vaccines UTD: Yes Seasonal Allergies Seasonal Allergies: Yes Current Status Primary Language: Occitan Past Medical History Surgeries: Breast, Orthopedic Currently Using CPAP: No Currently Using BIPAP: No High Cholesterol, Hypertension Sexually Transmitted Disease: No HIV/AIDS: No Anxiety Blood Disorders: No Family Medical History No Pertinent Family Hx Review of Systems Constitutional: see HPI EENTM: no symptoms reported Respiratory: no symptoms reported Cardiovascular: no symptoms reported Gastrointestinal: no symptoms reported Genitourinary: no symptoms reported Musculoskeletal: back pain, joint pain Skin: no symptoms reported Psychiatric/Neurological: No Symptoms Reported All Other Systems Reviewed Negative Unless Noted: Yes Physical Exam Physical Exam Vital Signs Vital Signs - First Documented 05/23/22 07:11 Temp 36.7 Pulse 71 Resp 20 B/P (MAP) 122/97 (105) Pulse Ox 94 O2 Delivery Room Air Capillary Refill : Less Than 3 Seconds Height, Weight, BMI Height: 5'3.00" Weight: 170lbs. oz. 77.781240rs; 34.96 BMI Method:Stated General Appearance: No Apparent Distress, WD/WN Eyes: Bilateral Eye Normal Inspection, Bilateral Eye PERRL HEENT: PERRL/EOMI, Normal ENT Inspection, Pharynx Normal Neck: Full Range of Motion, Normal Inspection, Non Tender, Supple, Carotid Bruit Respiratory: Chest Non Tender, Lungs Clear, Normal Breath Sounds, No Accessory Muscle Use, No Respiratory Distress Cardiovascular: Regular Rate, Rhythm, No Edema, No Gallop, No JVD, No Murmur, Normal Peripheral Pulses Gastrointestinal: Normal Bowel Sounds, No Organomegaly, No Pulsatile Mass, Non Tender, Soft Back: Normal Inspection, No CVA Tenderness, No Vertebral Tenderness Extremity: Normal Capillary Refill, Normal Inspection, Normal Range of Motion (except left knee), Non Tender, No Calf Tenderness, No Pedal Edema Neurologic/Psychiatric: Alert, Oriented x3, No Motor/Sensory Deficits, Normal Mood/Affect Skin: Normal Color, Warm/Dry Lymphatic: No Adenopathy Results Results/Procedures Labs Patient resulted labs reviewed. Assessment/Plan Assessment and Plan Assess & Plan/Chief Complaint Assessment: s/p left knee replacement Smoker HTN HLP Plan: Pain control PT OT Diagnosis/Problems Diagnosis/Problems (1) Osteoarthritis of left knee AMY CHANDRA DO May 23, 2022 10:34
--- NOTE | 2022-05-23 10:45 | Progress Note ---
Standard Progress Note Progress Notes/Assess & Plan Date Seen by a Provider: May 23, 2022 Time Seen by a Provider: 09:15 Progress/Assessment & Plan post op check no complaints radographs--Hw well positioned without fracture LLE--2 plus DP pulse with brisk refill sensation intact to light touch throughout intact DF and PF of toes and ankle s/p LTKA mobilize as able JACKELYN SALEH MD May 23, 2022 10:45
[2022-05-23] MEDS: NS IV 1000 ML 1,000 ML IV SCH ×3 (10:55→23:05)
[2022-05-23] MEDS: ENOXAPARIN INJECTION 30 MG/0.3 ML SYR SC SCH ×2 (13:29→18:44)
[2022-05-23] MEDS: ASPIRIN E.C. 81 MG (ECOTRIN) TAB PO SCH (13:29)
[2022-05-23] MEDS: SENNA W/DOCUSATE (SENOKOT S) TABLET PO SCH ×2 (13:29→20:00)
--- NOTE | 2022-05-23 14:06 | Physical Therapy Evaluation ---
PT Evaluation-General Medical Diagnosis Admission Date May 23, 2022 at 06:00 Medical Diagnosis: Left TKA Onset Date: May 23, 2022 Therapy Diagnosis Therapy Diagnosis: Impaired Mobility Height/Weight Height (Feet): 5 Height (Inches): 3.00 Weight (Pounds): 170 Precautions Precautions/Isolations: Fall Prevention, Standard Precautions Weight Bear Status Right Lower Extremity: Right Full Weight Bearing Left Lower Extremity: Left Weight Bearing/Tolerated Referral Physician: Conner Reason for Referral: Evaluation/Treatment Medical History Additional Medical History Inflammatory arthritis. PAST MEDICAL HISTORY: Inflammatory arthritis. PAST SURGICAL HISTORY: Breast reduction, bilateral total hip arthroplasties, tonsillectomy and ankle. Reviewed History: Yes Social History Home: Single Level Current Living Status: Alone Entry Into Home: Level Entry Prior Prior Level of Function SCALE: Activities may be completed with or without assistive devices. 8-Rlzvzqxgbl-zgmjnfk completes the activity by him/herself with no assistance from a helper. 5-Set-up or Clean-up Assistance-helper sets up or cleans up; patient completes activity. [place] assists only prior to or following the activity. 4-Supervision or Touching Assistance-helper provides verbal cues and/or touching/steadying and/or contact guard assistance as patient completes activity. Assistance may be provided throughout the activity or intermittently. 3-Partial/Moderate Assistance-helper does LESS THAN HALF the effort. [place] lifts, holds or supports trunk or limbs, but provides less than half the effort. 2-Substantial/Maximal Assistance-helper does MORE THAN HALF the effort. [place] lifts or holds trunk or limbs and provides more than half the effort. 3-Mwgeyaamk-ldjpbr does ALL the effort. Patient does none of the effort to complete the activity. Or, the assistance of 2 or more helpers is required for the patient to complete the activity. If activity was not attempted, code reason: 7-Patient Refused. 9-Not Applicable-not attempted and the patient did not perform the activity before the current illness, exacerbation or injury. 10-Not Attempted due to Environmental Limitations-(lack of equipment, weather restraints, etc.). 88-Not Attempted due to Medical Conditions or Safety Concerns. Bed Mobility: 6 Transfers (B,C,W/C): 6 Gait: 6 Stairs: 3 Indoor Mobility (Ambulation): Independent Stairs: Needed Some Help Prior Devices Use: Walker (only needed walker when knee would hurt a lot) PT Evaluation-Current Subjective Patient in bed pre-tx, reports pain 5/10 in L knee, agrees to PT. Pt/Family Goals Return to independence at home. Objective Patient Orientation: Person, Place, Situation Attachments: Polar Pack, IV ROM/Strength ROM Lower Extremities left knee flexion 100 degrees, extension +5 degrees Strength Lower Extremities RLE grossly 4/5, LLE deferred due to pain Sensory Vision: Functional Hearing: Functional Sensation Right Lower Extremit: Intact Sensation Left Lower Extremity: Intact Treatment LE Strengthening (AP x20, Quad Set x20, SLR x20, Heel Slides x20) Assessment/Needs Patient feeling nauseous during exercises and threw up liquids several times. Unable ambulate and get to the recliner today due to vomiting. Patient doing well so far, L knee AROM flexion approx 100 degrees, extension lacking approx 5 degrees. Patient in bed post-tx with visitor in room, nurse call, phone, tray, polar pack on, all needs met. Rehab Potential: Fair PT Platform Builder Goals Usp Goals PT Usp Goals Time Frame: May 30, 2022 Roll Left & Right (QC): 6 Sit to Lying (QC): 6 Lying-Sitting on Side/Bed(QC): 6 Sit to Stand (QC): 6 Chair/Vec-fw-Lxeqa Xfer(QC): 6 Toilet Transfer (QC): 6 Does the Patient Walk: Yes Walk 10 feet (QC): 6 Walk 50ft with 2 Turns (QC): 6 Walk 150 ft (QC): 6 PT Plan Problem List Problem List: Activity Tolerance, Functional Strength, Safety, Balance, Gait, Transfer, Bed Mobility, ROM Treatment/Plan Treatment Plan: Continue Plan of Care Treatment Plan: Bed Mobility, Education, Functional Activity [place], Functional Strength, Gait, Safety, Therapeutic Exercise, Transfers Treatment Duration: May 30, 2022 Frequency: 11 times per week Estimated Hrs Per Day: .25 hour per day Patient and/or Family Agrees t: Yes Safety Risks/Education Patient Education: Correct Positioning, Safety Issues Teaching Recipient: Patient Teaching Methods: Demonstration, Discussion Response to Teaching: Reinforcement Needed Discharge Recommendations Plan Patient will perform bed mobility and transfer training, gait training and functional strengthening, balance and endurance training in order to be independent at home. Therapy Discharge Recommendati: Home & Family, Post Acute PT Time Time In: 1301 Time Out: 1330 DATE: May 23, 2022 Total Billed Treatment Time: 30 Total Billed Treatment 1 visit EVL 15' EX 15' JESUS MCBRIDE PT May 23, 2022 14:06
--- NOTE | 2022-05-23 14:32 | OPERATIVE REPORT ---
DATE OF SERVICE: 05/23/2022 PREOPERATIVE DIAGNOSIS: Left knee primary osteoarthritis. POSTOPERATIVE DIAGNOSIS: Left knee primary osteoarthritis. PROCEDURE: Left total knee arthroplasty. SURGEON: Demian Alex MD ACQUISITIONS ANALYST: Nicanor Orta, who assisted throughout the procedure and closed the incision. ANESTHESIA: General endotracheal by Jevon felder CRNA. TOURNIQUET TIME: Approximately 50 minutes at 300 mmHg. ESTIMATED BLOOD LOSS: Minimal. DRAINS: None. COMPLICATIONS: None. POSTOPERATIVE PLAN: Routine total knee arthroplasty protocol. MATERIALS: MicroPort cemented size 4 femur, cemented size 3 tibia with 10 mm insert and a cemented size 29 patellar button. The patient was transferred to the recovery room awake and stable. CONDITION OF MEDICAL NECESSITY: The patient is a 72-year-old female with longstanding progressive left knee pain. Radiographs revealed severe lateral and patellofemoral arthrosis. She has tried rest, activity modifications, anti-inflammatories without relief. Due to functional impairment and failure to improve with conservative measures, the patient elected to proceed with surgical intervention. DESCRIPTION OF PROCEDURE: After risks and benefits of the procedure were discussed and questions were answered and informed consent was signed and placed on the chart, the operative site was confirmed in the preoperative holding area initialed by surgeon. The patient was then transported to the operating room and after adequate levels of general endotracheal anesthetic was obtained, timeout was called, confirming the operative site. Examination under anesthesia was performed. The left lower extremity was prepped and draped in the usual sterile fashion with the leg elevated and the knee flexed, tourniquet was inflated to 300 mmHg. Standard anterior approach was utilized. Hemostasis was obtained with cautery. Medial parapatellar arthrotomy was performed, leaving a 1 cm cuff on the patella for later reattachment. A portion of the fat pad was resected. The ACL was resected. A subperiosteal release was performed on the proximal medial tibia, being careful to stay on the bony surface. The custom cutting block was placed on the femur, pinned into position just distal cut was made. The cutting block was placed at the previously placed drill holes from the custom block and cuts were made from posterior to anterior. A subperiosteal release was then carefully performed on the posterior distal femur being careful to stay on the bony surface. The custom cutting block was placed on the tibia. Excellent coverage was obtained. Drop malina transected the intermalleolar axis. At the end of position, the cut was made and the 3 baseplate was placed at the previously placed drill holes. The drop malina transected the intermalleolar access. This was prepared with the drill and keel punch. The femoral trial was placed and the trochlear cut was made. The patella was then prepared by resecting 10 mm off the undersurface. The peg guide was placed and the peg holes were drilled. The 29 trial was placed. The knee was taken through range of motion. Full extension was easily obtained 120 degrees of flexion with gravity was easily obtained. There was no anterior/posterior or medial/lateral laxity in flexion or extension. The trials were removed. The joint was irrigated with pulse lavage. The periarticular block was placed and the posterior capsule, medial and lateral retinaculum, extensor mechanism, and subcutaneous tissues. The joint was further irrigated. The bone ends were irrigated. The tibial baseplate was cemented into position. Excessive cement was removed. The superior surface was irrigated and dried. The polyethylene insert was placed. The distal femur was irrigated and dried and the femoral prosthesis was cemented into position. Then, the knee was brought out in full extension until cement cured. Excessive cement was removed. The undersurface of the patella was irrigated and dried. The patellar button was cemented into position. Excessive cement was removed. Once the cement cured, the knee was taken through range of motion. Full extension was easily obtained 120 degrees of flexion with gravity was easily obtained. There was no anterior/posterior, medial/lateral laxity in flexion or extension. The patella tracked well. The joint was further irrigated with pulse lavage. The arthrotomy was closed with #2 Tevdek in ujrgej-cp-syfot interrupted fashion. The knee was flexed. The repair was stable and the patella tracked well. Subcutaneous tissues were irrigated using a total of 6 liters throughout the procedure. 0 Vicryl was used for deep subcutaneous layer, 2-0 Vicryl for the superficial subcutaneous layer, good used on the skin. A soft dressing was applied. The tourniquet was deflated. The patient was transferred to recovery room awake and in stable condition. Job ID: [id number] DocumentID: [id number] Dictated Date: 05/23/2022 09:02:08 Elementary Ell Teacher Date: 05/23/2022 14:30:00 Dictated By: DEMIAN ALEX MD
--- NOTE | 2022-05-23 15:25 | Diagnostic Imaging Report ---
INDICATION: Left knee pain. EXAMINATION: AP and lateral views of the left knee were obtained. Left knee prosthesis appears in good alignment. There is no sign of fracture or device loosening. There is no unexpected radiopaque foreign body post surgery. IMPRESSION: Well aligned left knee prosthesis with no acute abnormality. Dictated by: Dictated on workstation # [id number]
[2022-05-23] MEDS ORDERED: PROMETHAZINE INJ 25 MG/ML (PHENERGAN) AMP IVP PRN (16:00)
[2022-05-23] MEDS ORDERED: SCOPOLAMINE 1.5 MG (TRANSDERM-SCOP) PATCH TD NR (16:00)
[2022-05-23] MEDS: CEFUROXIME INJECTION 750 MG in NS (IVPB) 50 ML IV SCH ×2 (16:30→23:44)
[2022-05-23] MEDS ORDERED: NON-FORMULARY MEDICATION 1 EA EA (Cetirizine HCl (Zyrtec) 10 MG) PO SCH (21:00)
[2022-05-24 00:28] VITALS: BP 168/74
[2022-05-24 04:52] VITALS: BP 158/70
[2022-05-24 05:41] LABS: BASOPHILS % (AUTO) 0 % (0-10); EOSINOPHILS % (AUTO) 0 % (0-10); HEMATOCRIT 41 % (35-52); HEMOGLOBIN 13.6 g/dL (11.5-16.0); LYMPHOCYTES % (AUTO) 13 % (12-44); MEAN CORPUSCULAR HEMOGLOBIN 29 pg (25-34); MEAN CORPUSCULAR HGB CONC 33 g/dL (32-36); MEAN CORPUSCULAR VOLUME 86 fL (80-99); MEAN PLATELET VOLUME 9.6 fL (9.0-12.2); MONOCYTES # (AUTO) 0.8 10^3/uL (0.0-1.0); MONOCYTES % (AUTO) 10 % (0-12); NEUTROPHILS # (AUTO) 6.1 10^3/uL (1.8-7.8); NEUTROPHILS % (AUTO) 76 % (42-75); PLATELET COUNT 181 10^3/uL (130-400); WHITE BLOOD COUNT 7.9 10^3/uL (4.3-11.0)
[2022-05-24 05:53] LABS: ALBUMIN 3.7 GM/DL (3.2-4.5); POTASSIUM 3.6 MMOL/L (3.6-5.0)
[2022-05-24 05:55] LABS: CALCIUM 8.9 MG/DL (8.5-10.1)
[2022-05-24 05:56] LABS: TOTAL PROTEIN 6.6 GM/DL (6.4-8.2)
[2022-05-24 05:58] LABS: BILIRUBIN,TOTAL 0.8 MG/DL (0.1-1.0)
[2022-05-24 05:59] LABS: CREATININE SERUM 0.66 MG/DL (0.60-1.30)
[2022-05-24] MEDS: ENOXAPARIN INJECTION 30 MG/0.3 ML SYR SC SCH ×2 (06:03→18:36)
[2022-05-24] MEDS ORDERED: MULTIVIT W/MINERALS TAB (THERAGRAN M) PO SCH (07:00)
[2022-05-24 07:37] VITALS: BP 154/77
--- NOTE | 2022-05-24 07:54 | Progress Note ---
Standard Progress Note Progress Notes/Assess & Plan Date Seen by a Provider: May 24, 2022 Time Seen by a Provider: 07:54 Progress/Assessment & Plan post op check no complaints radographs--Hw well positioned without fracture LLE--2 plus DP pulse with brisk refill sensation intact to light touch throughout intact DF and PF of toes and ankle s/p LTKA mobilize as able Final Diagnosis confused to time today Laboratory Tests Test 05/24/22 05:22 Range/Units White Blood Count 7.9 4.3-11.0 10^3/uL Red Blood Count 4.77 3.80-5.11 10^6/uL Hemoglobin 13.6 11.5-16.0 g/dL Hematocrit 41 35-52 % Mean Corpuscular Volume 86 80-99 fL Mean Corpuscular Hemoglobin 29 25-34 pg Mean Corpuscular Hemoglobin Concent 33 32-36 g/dL Red Cell Distribution Width 14.7 H 10.0-14.5 % Platelet Count 181 130-400 10^3/uL Mean Platelet Volume 9.6 9.0-12.2 fL Immature Granulocyte % (Auto) 0 % Neutrophils (%) (Auto) 76 H 42-75 % Lymphocytes (%) (Auto) 13 12-44 % Monocytes (%) (Auto) 10 0-12 % Eosinophils (%) (Auto) 0 0-10 % Basophils (%) (Auto) 0 0-10 % Neutrophils # (Auto) 6.1 1.8-7.8 10^3/uL Lymphocytes # (Auto) 1.0 1.0-4.0 10^3/uL Monocytes # (Auto) 0.8 0.0-1.0 10^3/uL Eosinophils # (Auto) 0.0 0.0-0.3 10^3/uL Basophils # (Auto) 0.0 0.0-0.1 10^3/uL Immature Granulocyte # (Auto) 0.0 0.0-0.1 10^3/uL Sodium Level 137 135-145 MMOL/L Potassium Level 3.6 3.6-5.0 MMOL/L Chloride Level 103 98-107 MMOL/L Carbon Dioxide Level 20 L 21-32 MMOL/L Anion Gap 14 5-14 MMOL/L Blood Urea Nitrogen 12 7-18 MG/DL Creatinine 0.66 0.60-1.30 MG/DL Estimat Glomerular Filtration Rate 93 BUN/Creatinine Ratio 18 Glucose Level 112 H 70-105 MG/DL Calcium Level 8.9 8.5-10.1 MG/DL Corrected Calcium 9.1 8.5-10.1 MG/DL Total Bilirubin 0.8 0.1-1.0 MG/DL Aspartate Amino Transf (AST/SGOT) 21 5-34 U/L Alanine Aminotransferase (ALT/SGPT) 16 0-55 U/L Alkaline Phosphatase 79 40-136 U/L Total Protein 6.6 6.4-8.2 GM/DL Albumin 3.7 3.2-4.5 GM/DL Vital Signs Date Time Temp Pulse Resp B/P (MAP) Pulse Ox O2 Delivery O2 Flow Rate FiO2 05/24/22 07:37 36.2 95 20 154/77 (102) 92 Nasal Cannula 2.00 05/24/22 06:55 90 Nasal Cannula 2.00 05/24/22 04:52 37.6 97 18 158/70 (99) 94 Nasal Cannula 2.00 05/24/22 00:28 37.0 84 18 168/74 (105) 93 Nasal Cannula 2.00 05/23/22 23:36 92 Room Air 05/23/22 20:30 Nasal Cannula 2.00 05/23/22 19:45 37.6 76 18 121/65 (83) 95 Nasal Cannula 2.00 05/23/22 15:50 36.3 64 20 125/58 (80) 93 Room Air 05/23/22 15:50 36.3 64 20 125/58 (80) 93 Room Air 05/23/22 11:52 36.6 79 16 107/65 (79) 93 Room Air 05/23/22 11:17 36.6 79 16 107/65 (79) 93 Room Air 05/23/22 10:34 36.3 76 16 109/51 (70) 92 Nasal Cannula 0.50 05/23/22 09:55 Nasal Cannula 2.00 05/23/22 09:50 36.1 16 121/51 (74) 96 Nasal Cannula 2.00 05/23/22 09:45 Nasal Cannula 2.00 05/23/22 09:40 18 121/65 (83) 97 Nasal Cannula 2.00 05/23/22 09:30 OxyMask 2.00 05/23/22 09:30 20 112/54 (73) 97 OxyMask 2.00 05/23/22 09:20 22 125/62 (83) 97 OxyMask 4.00 05/23/22 09:15 OxyMask 4.00 05/23/22 09:10 24 132/79 (96) 96 OxyMask 4.00 05/23/22 08:59 36.1 22 132/69 (90) 95 OxyMask 6.00 05/23/22 08:59 OxyMask 6.00 I & O 05/24/22 07:00 Intake Total 3530 ml Output Total 100 ml Balance 3430 ml LLE--dressing intact. NVI no calf tenderness s/p LTKA mobilize as able JACKELYN SALEH MD May 24, 2022 07:54
[2022-05-24] MEDS ORDERED: ALPRAZolam 0.5 MG (XANAX) TAB PO PRN (08:30)
--- NOTE | 2022-05-24 09:39 | Progress Note - Hospitalist ---
Subjective HPI/CC On Admission Date Seen by Provider: May 24, 2022 Time Seen by Provider: 11:00 CC: Medical management following knee replacement surgery HPI: This is a 72 yr old female clinic pt of [facility] who presents to room 411 after uncomplicated knee replacement by Dr. Alex. Currently she is doing a lot better. Pain is fairly well controlled. She denies any nausea. I did restart all of her home medication. Will monitor bp closely. 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 Chest x-ray shows atelectasis Hypoxia noted ABG revealed hypoxemia Slow recovery may need inpatient rehab Review of Systems Musculoskeletal: leg pain Neurological: Confusion Objective Exam Vital Signs Vital Signs Date Time Temp Pulse Resp B/P (MAP) Pulse Ox O2 Delivery O2 Flow Rate FiO2 05/25/22 04:00 37.5 79 20 128/62 (84) 94 Nasal Cannula 2.00 Capillary Refill : Less Than 3 Seconds General Appearance: No Apparent Distress, WD/WN, Chronically ill Respiratory: No Accessory Muscle Use, No Respiratory Distress, Crackles, Decreased Breath Sounds Cardiovascular: Regular Rate, Rhythm Neurologic/Psychiatric: Alert, Disoriented Results/Procedures Lab Laboratory Tests 05/24/22 05:22 Patient resulted labs reviewed. Assessment/Plan Assessment and Plan Assess & Plan/Chief Complaint Assessment: s/p left knee replacement Smoker HTN HLP Postop hypoxia with atelectasis on chest x-ray Plan: Pain control PT OT DC CONSTRUCTION CODE ADMINISTRATOR Incentive spirometer Meeting inpatient rehab criteria Diagnosis/Problems Diagnosis/Problems (1) Osteoarthritis of left knee AMY CHANDRA DO May 24, 2022 09:39
--- NOTE | 2022-05-24 09:53 | Anesthesia-General Post-Op ---
General Patient Condition Mental Status/LOC: Same as Preop Cardiovascular: Satisfactory Nausea/Vomiting: Absent Respiratory: Satisfactory Pain: Controlled Complications: Absent Post Op Complications Complications None Follow Up Care/Instructions Patient Instructions None needed. Anesthesia/Patient Condition Patient Condition Patient is doing well, no complaints, stable vital signs, no apparent adverse anesthesia problems. No complications reported per nursing. ABE WILDER CRNA May 24, 2022 09:53
--- NOTE | 2022-05-24 09:55 | Occupational Therapy Eval ---
OT Evaluation-General/PLF Medical Diagnosis Admission Date May 23, 2022 at 06:00 Medical Diagnosis: Left TKA Onset Date: May 23, 2022 Therapy Diagnosis Therapy Diagnosis: decreased ADL status Height/Weight Height (Feet): 5 Height (Inches): 3.00 Weight (Pounds): 170 Precautions Precautions/Isolations: Fall Prevention, Standard Precautions Referral Physician: Conner Referral Reason: Evaluation/Treatment Medical History Additional Medical History inflammatory arthritis, b/l total hip arthroplasties, tonsillectomy, ankle sx Current History s/p L TKA 05/23/22 Social History Home: Single Level Current Living Status: Alone Entry Into Home: Level Entry ADL-Prior Level of Function SCALE: Activities may be completed with or without assistive devices. 1-Xaubdptvfn-zgyxoua completes the activity by him/herself with no assistance from a helper. 5-Set-up or Clean-up Assistance-helper sets up or cleans up; patient completes activity. [place] assists only prior to or following the activity. 4-Supervision or Touching Assistance-helper provides verbal cues and/or touching/steadying and/or contact guard assistance as patient completes activity. Assistance may be provided throughout the activity or intermittently. 3-Partial/Moderate Assistance-helper does LESS THAN HALF the effort. [place] lifts, holds or supports trunk or limbs, but provides less than half the effort. 2-Substantial/Maximal Assistance-helper does MORE THAN HALF the effort. [place] lifts or holds trunk or limbs and provides more than half the effort. 8-Ufumbudxq-sleqts does ALL the effort. Patient does none of the effort to complete the activity. Or, the assistance of 2 or more helpers is required for the patient to complete the activity. If activity was not attempted, code reason: 7-Patient Refused. 9-Not Applicable-not attempted and the patient did not perform the activity before the current illness, exacerbation or injury. 10-Not Attempted due to Environmental Limitations-(lack of equipment, weather restraints, etc.). 88-Not Attempted due to Medical Conditions or Safety Concerns. ADL PLOF Comments Pt reports IND with ADLs and functional mobility at PLOF, using a walker due to knee pain. Self Care: Independent Functional Cognition: Independent DME/Equipment: Bath Bench, Tub/Shower OT Current Status Subjective Pt up in recliner upon OT arrival. O2 saturation 89% on RA. OT placed NC back on pt from her lap and O2 saturation returned to the 90%'s. Pt oriented to place and situation, but when asked various questions, pt would reply without answering the question fully. Pt had difficulty keeping eyes open throughout tx. Pain Numeric Pain Scale: 7 Location: Left Location Body Site: Knee Mental Status/Objective Patient Orientation: Person, Confused, Place, Situation Attachments: IV Current Upper Extremity ROM WFL, BUE shoulder flexion to approx 150 degrees Upper Extremity Coordination WFL Upper Extremity Sensation WFL Upper Extremity Strength grossly 3/5 ADL-Treatment Eating (QC): 6 (IND per pt report.) Shower/Bathe Self (QC): 88 On/Off Footwear (QC): 1 (Pt unable to reach feet to complete footwear.) Other Treatments Pt in recliner, agreeable to OT tx. Pt provided information about PLOF and home set up to her ability. Pt often would attempt to answer OT questions, but never fully answered the question presented. She had difficulty keeping eyes open throughout evaluation/tx. Pt participated in UE screen. Pt attempted to complete footwear, but unable to reach forward far enough to reach either foot. Post tx, pt in recliner, call light in reach and all needs met. Education OT Patient Education: Correct positioning, Energy conservation, Exercise program, Modified ADL techniques, Progress toward Goal/Update tx plan, Purpose of tx/functional activities, Rehab process Teaching Recipient: Patient Teaching Methods: Discussion Response to Teaching: Verbalize Understanding OT Diagnostic Cardiac Sonographer Goals Diagnostic Cardiac Sonographer Goals Time Frame: Jun 08, 2022 Eating (QC): 6 Oral Hygiene (QC): 6 Toileting Hygiene (QC): 6 Shower/Bathe Self (QC): 6 Upper Body Dressing (QC): 6 Lower Body Dressing (QC): 6 On/Off Footwear (QC): 6 Additional Goals: 1-Demonstrate ADL Tasks, 2-Verbalize Understanding, 3- ImproveStrength/[place] 1=Demonstrate adherence to instructed precautions during ADL tasks. 2=Patient will verbalize/demonstrate understanding of assistive devices/modifications for ADL. 3=Patient will improve strength/tolerance for activity to enable patient to perform ADL's. OT Education/Plan Problem List/Assessment Assessment: Decreased Activ Tolerance, Decreased Safety Aware, Decreased UE Strength, Impaired Cognition, Impaired Funct Balance, Impaired I ADL's, Impaired Self-Care Skills, Restricted Funct UE ROM Discharge Recommendations Plan/Recommendations: Continue POC Treatment Plan/Plan of Care Patient would benefit from OT for education, treatment and training to promote independence in ADL's, mobility, safety and/or upper extremity function for ADL's. Plan of Care: ADL Retraining, Functional Mobility, UE Funct Exercise/Act Treatment Duration: Jun 08, 2022 Frequency: 3 times per week (3-5 times per week) Rehab Potential: Fair Time Start Time: 09:18 Stop Time: 09:32 DATE: May 24, 2022 Total Time Billed (hr/min): 14 Billed Treatment Time 1, ANDREZ ORTEZ OT May 24, 2022 09:55
[2022-05-24] MEDS: guaiFENesin (MUCINEX) 600 MG TAB PO SCH (09:59)
[2022-05-24] MEDS: SENNA W/DOCUSATE (SENOKOT S) TABLET PO SCH ×2 (09:59→21:00)
[2022-05-24] MEDS: ASPIRIN E.C. 81 MG (ECOTRIN) TAB PO SCH (09:59)
[2022-05-24] MEDS: LORATADINE (CLARITIN) 10 MG TAB PO SCH (09:59)
--- NOTE | 2022-05-24 10:33 | Physical Therapy Daily Note ---
PT Daily Note-Current Subjective Patient is very confused and slightly agitated. Pain Section J - Health Conditions 1. Rarely or not at all 2. Occasionally 3. Frequently 4. Almost constantly 8. Unable to answer Pain Effect on Sleep: 8 Pain Interference with Therapy: 8 Pain Interference w/Day-to-Day: 8 Mental Status Patient Orientation: Confused Attachments: Oxygen, IV Transfers SCALE: Activities may be completed with or without assistive devices. 8-Tnogpsswwg-ygurned completes the activity by him/herself with no assistance from a helper. 5-Set-up or Clean-up Assistance-helper sets up or cleans up; patient completes activity. [place] assists only prior to or following the activity. 4-Supervision or Touching Assistance-helper provides verbal cues and/or touching/steadying and/or contact guard assistance as patient completes activity. Assistance may be provided throughout the activity or intermittently. 3-Partial/Moderate Assistance-helper does LESS THAN HALF the effort. [place] lifts, holds or supports trunk or limbs, but provides less than half the effort. 2-Substantial/Maximal Assistance-helper does MORE THAN HALF the effort. [place] lifts or holds trunk or limbs and provides more than half the effort. 7-Bbpiibjtk-mxedlb does ALL the effort. Patient does none of the effort to complete the activity. Or, the assistance of 2 or more helpers is required for the patient to complete the activity. If activity was not attempted, code reason: 7-Patient Refused. 9-Not Applicable-not attempted and the patient did not perform the activity before the current illness, exacerbation or injury. 10-Not Attempted due to Environmental Limitations-(lack of equipment, weather restraints, etc.). 88-Not Attempted due to Medical Conditions or Safety Concerns. Lying to Sitting/Side of Bed(Q: 3 Sit to Stand (QC): 3 Chair/Sqr-yq-Wocpi Xfer(QC): 3 Toilet Transfer (QC): 3 Weight Bearing Right Lower Extremity: Right Full Weight Bearing Left Lower Extremity: Left Weight Bearing/Tolerated Gait Training Distance: 125' Walk 10 feet (QC): 3 Walk 50 ft with 2 Turns(QC): 3 Walk 150 ft (QC): 3 Gait Assistive Device: FWW flexed trunk posture with gait training/step to gait sequence Exercises Supine Ex: Ankle pumps, Quad Set, Heel Slides, Straight leg raise Supine Reps: 12 (AAROM) Seated Therapy Exercises: Long arc quads Seated Reps: 12 Assessment Patient remains very confused requiring redirection to remain on task. PT to increase activity as tolerated by patient. PT Instructional Technology Facilitator Goals Instructional Technology Facilitator Goals PT Instructional Technology Facilitator Goals Time Frame: May 30, 2022 Roll Left & Right (QC): 6 Sit to Lying (QC): 6 Lying-Sitting on Side/Bed(QC): 6 Sit to Stand (QC): 6 Chair/Nfm-nx-Qsnib Xfer(QC): 6 Toilet Transfer (QC): 6 Does the Patient Walk: Yes Walk 10 feet (QC): 6 Walk 50ft with 2 Turns (QC): 6 Walk 150 ft (QC): 6 PT Plan Treatment/Plan Treatment Plan: Continue Plan of Care Treatment Plan: Bed Mobility, Education, Functional Activity [place], Functional Strength, Gait, Safety, Therapeutic Exercise, Transfers Treatment Duration: May 30, 2022 Frequency: 11 times per week Estimated Hrs Per Day: .25 hour per day Patient and/or Family Agrees t: Yes Time Time In: 800 Time Out: 825 DATE: May 24, 2022 Total Billed Treatment Time: 25 Total Billed Treatment 1 visit EX 13 min GT 12 min FARTUN COREA PT May 24, 2022 10:33
[2022-05-24 12:03] VITALS: BP 144/70
[2022-05-24] MEDS: NS IV 1000 ML 1,000 ML IV SCH (12:27)
[2022-05-24 13:34] LABS: ABG BASE EXCESS -0.1 MMOL/L (-2.5-2.5); ABG OXYGEN SATURATION 91 % (94-100); ABG PCO2 41 MMHG (35-45); ABG PH 7.39 (7.37-7.43); ABG PO2 61 MMHG (79-93); ABG TCO2 25.5 MMOL/L (21.0-31.0)
[2022-05-24 13:35] LABS: ALLENS TEST YES-POS
[2022-05-24 13:36] LABS: INSPIRED O2 2 L; PATIENT TEMP 37; VENTILATOR NO
--- NOTE | 2022-05-24 13:36 | Diagnostic Imaging Report ---
CHEST 1 VIEW, AP/PA ONLY INDICATION: Hypoxia. COMPARISON: 05/15/2022. FINDINGS: Increasing bibasilar linear opacities. No pleural effusion or pneumothorax. Normal cardiomediastinal silhouette. IMPRESSION: 1. Worsening of bibasilar pulmonary opacities that are most likely due to atelectasis. Dictated by: Dictated on workstation # [id number]
--- NOTE | 2022-05-24 13:59 | Physical Therapy Daily Note ---
PT Daily Note-Current Subjective Patient remains highly confused. Pain Section J - Health Conditions 1. Rarely or not at all 2. Occasionally 3. Frequently 4. Almost constantly 8. Unable to answer Pain Effect on Sleep: 8 Pain Interference with Therapy: 8 Pain Interference w/Day-to-Day: 8 Mental Status Patient Orientation: Confused Attachments: IV Transfers SCALE: Activities may be completed with or without assistive devices. 4-Yafysgwaab-ealdnbn completes the activity by him/herself with no assistance from a helper. 5-Set-up or Clean-up Assistance-helper sets up or cleans up; patient completes activity. [place] assists only prior to or following the activity. 4-Supervision or Touching Assistance-helper provides verbal cues and/or touching/steadying and/or contact guard assistance as patient completes activity. Assistance may be provided throughout the activity or intermittently. 3-Partial/Moderate Assistance-helper does LESS THAN HALF the effort. [place] lifts, holds or supports trunk or limbs, but provides less than half the effort. 2-Substantial/Maximal Assistance-helper does MORE THAN HALF the effort. [place] lifts or holds trunk or limbs and provides more than half the effort. 4-Ffbtyzhgt-tnaakj does ALL the effort. Patient does none of the effort to complete the activity. Or, the assistance of 2 or more helpers is required for the patient to complete the activity. If activity was not attempted, code reason: 7-Patient Refused. 9-Not Applicable-not attempted and the patient did not perform the activity before the current illness, exacerbation or injury. 10-Not Attempted due to Environmental Limitations-(lack of equipment, weather restraints, etc.). 88-Not Attempted due to Medical Conditions or Safety Concerns. Sit to Stand (QC): 3 Weight Bearing Right Lower Extremity: Right Full Weight Bearing Left Lower Extremity: Left Weight Bearing/Tolerated Gait Training Distance: 100' Walk 10 feet (QC): 3 Walk 50 ft with 2 Turns(QC): 3 Gait Assistive Device: FWW VC's for body placement in FWW and step length/extended UE's with FWW use and step to gait sequence Exercises Seated Therapy Exercises: Ankle pumps, Long arc quads, Hip flexion Seated Reps: 15 (AAROM left LE) Assessment Patient continues to require time to complete all functional tasks and redirection to remain on task. Patient will require continued skilled PT from acute floor due to patient is currently not safe to return to home at this time. SW notified. PT Prison Goals Warehouse Processor Goals PT Warehouse Processor Goals Time Frame: May 30, 2022 Roll Left & Right (QC): 6 Sit to Lying (QC): 6 Lying-Sitting on Side/Bed(QC): 6 Sit to Stand (QC): 6 Chair/Kra-ju-Janbj Xfer(QC): 6 Toilet Transfer (QC): 6 Does the Patient Walk: Yes Walk 10 feet (QC): 6 Walk 50ft with 2 Turns (QC): 6 Walk 150 ft (QC): 6 PT Plan Treatment/Plan Treatment Plan: Continue Plan of Care Treatment Plan: Bed Mobility, Education, Functional Activity [place], Functional Strength, Gait, Safety, Therapeutic Exercise, Transfers Treatment Duration: May 30, 2022 Frequency: 11 times per week Estimated Hrs Per Day: .25 hour per day Patient and/or Family Agrees t: Yes Time Time In: 1245 Time Out: 1308 DATE: May 24, 2022 Total Billed Treatment Time: 23 Total Billed Treatment 1 visit EX 10 min GT 13 min FARTUN COREA PT May 24, 2022 13:58
[2022-05-24] MEDS: RT-ALBUTEROL SULF 2.5 MG/3 ML PRE-MIX VIAL INH SCH (14:36)
[2022-05-24 15:40] VITALS: BP 128/77
[2022-05-24 19:17] VITALS: BP 153/74
[2022-05-25 00:09] VITALS: BP 117/45
[2022-05-25] MEDS: oxyCODONE/APAP 5/325MG (PERCOCET 5) TABLET PO PRN ×2 (03:53→09:19)
[2022-05-25 04:00] VITALS: BP 128/62
[2022-05-25 06:31] LABS: BASOPHILS % (AUTO) 0 % (0-10); EOSINOPHILS % (AUTO) 0 % (0-10); HEMATOCRIT 38 % (35-52); HEMOGLOBIN 12.7 g/dL (11.5-16.0); LYMPHOCYTES % (AUTO) 14 % (12-44); MEAN CORPUSCULAR HEMOGLOBIN 29 pg (25-34); MEAN CORPUSCULAR HGB CONC 33 g/dL (32-36); MEAN CORPUSCULAR VOLUME 88 fL (80-99); MEAN PLATELET VOLUME 10.2 fL (9.0-12.2); MONOCYTES # (AUTO) 0.8 10^3/uL (0.0-1.0); MONOCYTES % (AUTO) 12 % (0-12); NEUTROPHILS # (AUTO) 5.3 10^3/uL (1.8-7.8); NEUTROPHILS % (AUTO) 74 % (42-75); PLATELET COUNT 162 10^3/uL (130-400); WHITE BLOOD COUNT 7.2 10^3/uL (4.3-11.0)
[2022-05-25] MEDS: ENOXAPARIN INJECTION 30 MG/0.3 ML SYR SC SCH (06:36)
[2022-05-25 06:48] LABS: ALBUMIN 3.2 GM/DL (3.2-4.5); POTASSIUM 3.3 MMOL/L (3.6-5.0)
[2022-05-25 06:49] LABS: CALCIUM 8.9 MG/DL (8.5-10.1)
[2022-05-25 06:52] LABS: BILIRUBIN,TOTAL 0.8 MG/DL (0.1-1.0)
[2022-05-25 06:54] LABS: CREATININE SERUM 0.52 MG/DL (0.60-1.30)
--- NOTE | 2022-05-25 07:12 | Progress Note ---
Standard Progress Note Progress Notes/Assess & Plan Date Seen by a Provider: May 25, 2022 Time Seen by a Provider: 07:09 Progress/Assessment & Plan post op check no complaints radographs--Hw well positioned without fracture LLE--2 plus DP pulse with brisk refill sensation intact to light touch throughout intact DF and PF of toes and ankle s/p LTKA mobilize as able Final Diagnosis doing much better today Vital Signs Date Time Temp Pulse Resp B/P (MAP) Pulse Ox O2 Delivery O2 Flow Rate FiO2 05/25/22 04:00 37.5 79 20 128/62 (84) 94 Nasal Cannula 2.00 05/25/22 00:09 37.1 94 20 117/45 (69) 95 Nasal Cannula 2.00 05/24/22 20:30 Nasal Cannula 2.00 05/24/22 19:17 37.4 98 18 153/74 (100) 94 Nasal Cannula 2.00 05/24/22 15:40 37.0 98 20 128/77 (94) 92 2.00 05/24/22 14:37 92 Nasal Cannula 2.00 05/24/22 13:20 92 Nasal Cannula 2.00 05/24/22 12:03 36.3 96 20 144/70 (94) 93 Nasal Cannula 2.00 05/24/22 10:33 90 Nasal Cannula 2.00 05/24/22 08:00 Nasal Cannula 2.00 05/24/22 07:37 36.2 95 20 154/77 (102) 92 Nasal Cannula 2.00 I & O 05/25/22 07:00 Intake Total 3380 ml Output Total 1300 ml Balance 2080 ml Laboratory Tests Test 05/24/22 13:31 05/25/22 05:18 Range/Units Blood Gas Puncture Site R RAD Blood Gas Patient Temperature 37 Arterial Blood pH 7.39 7.37-7.43 Arterial Blood Partial Pressure CO2 41 35-45 MMHG Arterial Blood Partial Pressure O2 61 L 79-93 MMHG Arterial Blood HCO3 24 23-27 MMOL/L Arterial Blood Total CO2 25.5 21.0-31.0 MMOL/L Arterial Blood Oxygen Saturation 91 L 94-100 % Arterial Blood Base Excess -0.1 -2.5-2.5 MMOL/L Guero Test YES-POS Blood Gas Ventilator Setting NO Blood Gas Inspired Oxygen 2 L White Blood Count 7.2 4.3-11.0 10^3/uL Red Blood Count 4.37 3.80-5.11 10^6/uL Hemoglobin 12.7 11.5-16.0 g/dL Hematocrit 38 35-52 % Mean Corpuscular Volume 88 80-99 fL Mean Corpuscular Hemoglobin 29 25-34 pg Mean Corpuscular Hemoglobin Concent 33 32-36 g/dL Red Cell Distribution Width 14.8 H 10.0-14.5 % Platelet Count 162 130-400 10^3/uL Mean Platelet Volume 10.2 9.0-12.2 fL Immature Granulocyte % (Auto) 0 % Neutrophils (%) (Auto) 74 42-75 % Lymphocytes (%) (Auto) 14 12-44 % Monocytes (%) (Auto) 12 0-12 % Eosinophils (%) (Auto) 0 0-10 % Basophils (%) (Auto) 0 0-10 % Neutrophils # (Auto) 5.3 1.8-7.8 10^3/uL Lymphocytes # (Auto) 1.0 1.0-4.0 10^3/uL Monocytes # (Auto) 0.8 0.0-1.0 10^3/uL Eosinophils # (Auto) 0.0 0.0-0.3 10^3/uL Basophils # (Auto) 0.0 0.0-0.1 10^3/uL Immature Granulocyte # (Auto) 0.0 0.0-0.1 10^3/uL Sodium Level 139 135-145 MMOL/L Potassium Level 3.3 L 3.6-5.0 MMOL/L Chloride Level 107 98-107 MMOL/L Carbon Dioxide Level 21 21-32 MMOL/L Anion Gap 11 5-14 MMOL/L Blood Urea Nitrogen 14 7-18 MG/DL Creatinine 0.52 L 0.60-1.30 MG/DL Estimat Glomerular Filtration Rate 98 BUN/Creatinine Ratio 27 Glucose Level 127 H 70-105 MG/DL Calcium Level 8.9 8.5-10.1 MG/DL Corrected Calcium 9.5 8.5-10.1 MG/DL Total Bilirubin 0.8 0.1-1.0 MG/DL Aspartate Amino Transf (AST/SGOT) 21 5-34 U/L Alanine Aminotransferase (ALT/SGPT) 11 0-55 U/L Alkaline Phosphatase 73 40-136 U/L Total Protein 6.0 L 6.4-8.2 GM/DL Albumin 3.2 3.2-4.5 GM/DL LLE--no calf tenderness. neg Jose's incision clean and dry s/p LTKA back to baseline mentation if clears PT today may DC home, if not, DC to [facility] JACKELYN SALEH MD May 25, 2022 07:12
--- NOTE | 2022-05-25 08:06 | Diagnostic Imaging Report ---
Indication: Hypoxia. Compared with study of 05/24/2022 Findings: Right perihilar discoid subsegmental atelectasis stable, patchy atelectasis in the left base improved. No adverse development. No failure pattern. Impression: Reduction in left basilar atelectasis, no adverse change. Dictated by: Dictated on workstation # [id number]
[2022-05-25 08:19] VITALS: BP 119/69
[2022-05-25] MEDS: RT-ALBUTEROL SULF 2.5 MG/3 ML PRE-MIX VIAL INH SCH (08:29)
[2022-05-25] MEDS: ASPIRIN E.C. 81 MG (ECOTRIN) TAB PO SCH (09:16)
[2022-05-25] MEDS: LORATADINE (CLARITIN) 10 MG TAB PO SCH (09:16)
[2022-05-25] MEDS: guaiFENesin (MUCINEX) 600 MG TAB PO SCH (09:16)
[2022-05-25] MEDS: SENNA W/DOCUSATE (SENOKOT S) TABLET PO SCH (09:16)
--- NOTE | 2022-05-25 09:19 | Physical Therapy Daily Note ---
PT Daily Note-Current Subjective Patient alert and oriented x 4. Reports she wants to go home with home health. Agrees to PT. Pain Numeric Pain Scale: 5-Moderate Pain Location: Left Location Body Site: Knee Pain Description: Acute Section J - Health Conditions 1. Rarely or not at all 2. Occasionally 3. Frequently 4. Almost constantly 8. Unable to answer Pain Effect on Sleep: 2 Pain Interference with Therapy: 2 Pain Interference w/Day-to-Day: 2 Mental Status Patient Orientation: Normal For Age Transfers SCALE: Activities may be completed with or without assistive devices. 4-Filgrhvjox-nknlakt completes the activity by him/herself with no assistance from a helper. 5-Set-up or Clean-up Assistance-helper sets up or cleans up; patient completes activity. Stephens assists only prior to or following the activity. 4-Supervision or Touching Assistance-helper provides verbal cues and/or touching/steadying and/or contact guard assistance as patient completes activity. Assistance may be provided throughout the activity or intermittently. 3-Partial/Moderate Assistance-helper does LESS THAN HALF the effort. Stephens lifts, holds or supports trunk or limbs, but provides less than half the effort. 2-Substantial/Maximal Assistance-helper does MORE THAN HALF the effort. Stephens lifts or holds trunk or limbs and provides more than half the effort. 4-Cjzjzqezm-eiaqlk does ALL the effort. Patient does none of the effort to complete the activity. Or, the assistance of 2 or more helpers is required for the patient to complete the activity. If activity was not attempted, code reason: 7-Patient Refused. 9-Not Applicable-not attempted and the patient did not perform the activity before the current illness, exacerbation or injury. 10-Not Attempted due to Environmental Limitations-(lack of equipment, weather restraints, etc.). 88-Not Attempted due to Medical Conditions or Safety Concerns. Lying to Sitting/Side of Bed(Q: 6 Sit to Stand (QC): 5 Chair/Rrq-bz-Hmexs Xfer(QC): 5 Weight Bearing Right Lower Extremity: Right Full Weight Bearing Left Lower Extremity: Left Weight Bearing/Tolerated Gait Training Distance: 300' Walk 10 feet (QC): 5 Walk 50 ft with 2 Turns(QC): 5 Walk 150 ft (QC): 5 Gait Assistive Device: FWW improved gait pattern and body placement in FWW with reciprocal pattern. Exercises Supine Ex: Ankle pumps, Quad Set, Heel Slides, Straight leg raise Supine Reps: 12 Seated Therapy Exercises: Long arc quads Seated Reps: 15 Assessment Patient much improved on this date. Patient educated on performing HEP if returning to home with home health. Patient voices understanding. Patient up in recliner with breakfast in situ. left knee AAROM 5-80 degrees PT Patient Case Manager Goals Patient Case Manager Goals PT [facility] Goals Time Frame: May 30, 2022 Roll Left & Right (QC): 6 Sit to Lying (QC): 6 Lying-Sitting on Side/Bed(QC): 6 Sit to Stand (QC): 6 Chair/Wrc-sh-Ydjnw Xfer(QC): 6 Toilet Transfer (QC): 6 Does the Patient Walk: Yes Walk 10 feet (QC): 6 Walk 50ft with 2 Turns (QC): 6 Walk 150 ft (QC): 6 PT Plan Treatment/Plan Treatment Plan: Continue Plan of Care Treatment Plan: Bed Mobility, Education, Functional Activity [place], Functional Strength, Gait, Safety, Therapeutic Exercise, Transfers Treatment Duration: May 30, 2022 Frequency: 11 times per week Estimated Hrs Per Day: .25 hour per day Patient and/or Family Agrees t: Yes Time Time In: 740 Time Out: 805 DATE: May 25, 2022 Total Billed Treatment Time: 25 Total Billed Treatment 1 visit EX 15 min GT 10 min FARTUN COREA PT May 25, 2022 09:19
[2022-05-25 11:14] VITALS: BP 119/69
--- NOTE | 2022-05-26 05:50 | DISCHARGE SUMMARY ---
DIAGNOSES: 1. Left knee primary osteoarthritis. 2. Inflammatory arthritis. PROCEDURE: Left total knee arthroplasty. SUMMARY OF HOSPITAL COURSE: The patient is a 72-year-old female who underwent a left total knee arthroplasty the day of admission. Postoperatively, she had confusion on postoperative day #1, but on postoperative day #2, had returned to her baseline status. At the time of discharge, her wound was clean and dry. She had no calf tenderness. Negative Homans sign. She is tolerating a diet well and tolerating pain with oral pain medication. CONDITION AT DISCHARGE: Good. DISCHARGE DIET: Regular. DISPOSITION: Transferred to inpatient rehabilitation unit for continued physical and occupational therapy. Job ID: [id number] DocumentID: [id number] Dictated Date: 05/25/2022 07:12:43 Road Marker Date: 05/26/2022 05:48:00 Dictated By: JACKELYN SALEH MD
== END 2022-05-25 11:30 | disposition home health service (06) | DRG 470 ==
LOC: 4TH 06:00 → SURG 06:01 → 4TH 10:06
PROVIDERS: ADMIT Orthopaedic Surgery; ATTEND Orthopaedic Surgery
PROC: 0SRD0J9 Replacement of Left Knee Joint with Synthetic Substitute, Cemented, Open Approach (ICD-10-PCS; principal; 2022-05-23 07:31)
DX: M17.12 Unilateral primary osteoarthritis, left knee (principal); J98.11 Atelectasis; Z96.643 Presence of artificial hip joint, bilateral; F17.210 Nicotine dependence, cigarettes, uncomplicated; E78.00 Pure hypercholesterolemia, unspecified; I10 Essential (primary) hypertension; F41.9 Anxiety disorder, unspecified; R09.02 Hypoxemia
CPT/HCPCS: 36415; 71045; 73560; 80053; 82805; 84145; 85025; 87081; 94640; 94664; 94760

== ENCOUNTER 2022-07-23 13:09 | Outpatient (RCR) | payer MEDICARE | END 2022-07-24 | disposition home or self-care (01) | PROVIDERS: ATTEND Orthopaedic Surgery | DX: Z47.1 Aftercare following joint replacement surgery (principal); Z96.652 Presence of left artificial knee joint; R26.89 Other abnormalities of gait and mobility ==

== ENCOUNTER 2022-08-20 13:18 | Outpatient (RCR) | payer MEDICARE | END 2022-08-21 | disposition home or self-care (01) | PROVIDERS: ATTEND Orthopaedic Surgery | DX: Z47.1 Aftercare following joint replacement surgery (principal); Z96.652 Presence of left artificial knee joint ==

== ENCOUNTER 2022-08-24 13:03 | Outpatient (RCR) | payer MEDICARE | END 2022-08-24 14:00 | disposition home or self-care (01) | PROVIDERS: ATTEND Orthopaedic Surgery | DX: Z47.1 Aftercare following joint replacement surgery (principal); Z96.652 Presence of left artificial knee joint ==